=== PATIENT | male | born 1965 | race African-American/Black ===

== ENCOUNTER 2016-11-10 10:34 | Inpatient (IN) | payer OTHER ==
[2016-11-10 10:59] VITALS: BMI 22.1
--- NOTE | 2016-11-10 12:04 | HP ---
CIWA Score - CIWA Score Nausea/Vomitin (N/V/D) Muscle Tremors: 4-Moderate,w/Arms Extend Anxiety: 4-Mod. Anxious/Guarded Agitation: 3 Paroxysmal Sweats: 1-Minimal Palms Moist Orientation: 0-Oriented Tacttile Disturbances: 3-Moderate Itch/Numb/Burn Auditory Disturbances: 0-None Visual Disturbances: 0-None Headache: 1-Very Mild CIWA-Ar Total Score: 21 Admission ROS BHS - HPI Chief Complaint: DETOX TX FOR ALCOHOL,XANAX AND COCAINE DEPENDENCE Allergies/Adverse Reactions: Allergies Allergy/AdvReac Type Severity Reaction Status Date / Time No Known Allergies Allergy Verified 11/14/16 12:09 History of Present Illness: 51 Y/O AA/MALE WITH A HX OF ALCOHOL,COCAINE AND XANAX DEPENDENCE SEEKING DETOX TX. PT ALSO STATES BUYS PAIN PILLS ON THE STREET TO "COME DOWN OF COCAINE HIGH" . PT HAS MULTIPLE EPISODES OF TX VISITS. Exam Limitations: No Limitations - Ebola screening Have you traveled outside of the country in the last 21 days: No Have you had contact with anyone from an Ebola affected area: No Have you been sick,other than usual withdrawal symptoms: No Do you have a fever: No - Review of Systems Constitutional: Chills, Loss of Appetite, Night Sweats, Changes in sleep, Unintentional Wgt. Loss EENT: reports: Blurred Vision, Nose Congestion Respiratory: reports: No Symptoms reported Cardiac: reports: Lightheadedness GI: reports: Diarrhea, Nausea, Poor Appetite, Poor Fluid Intake, Vomiting : reports: No Symptoms Reported Musculoskeletal: reports: Muscle Pain Integumentary: reports: No Symptoms Reported Neuro: reports: Headache, Tremors, Unsteady Gait, Dizziness Endocrine: reports: No Symptoms Reported Hematology: reports: No Symptoms Reported Psychiatric: reports: Orientated x3, Agitated, Anxious, Depressed Other Systems: Reviewed and Negative Patient History - Patient Medical History Hx Anemia: No Hx Asthma: No Hx Chronic Obstructive Pulmonary Disease (COPD): No Hx Cancer: No Hx Cardiac Disorders: No Hx Congestive Heart Failure: No Hx Hypertension: No Hx Hypercholesterolemia: No Hx Pacemaker: No HX Cerebrovascular Accident: No Hx Seizures: No Hx Dementia: No Hx Diabetes: No Hx Gastrointestinal Disorders: No Hx Liver Disease: No Hx Genitourinary Disorders: No Hx Sexually Transmitted Disorders: No Hx Renal Disease (ESRD): No Hx Thyroid Disease: No Hx Human Immunodeficiency Virus (HIV): Yes (SINCE 1998;ON MED) Hx Hepatitis C: No Hx Depression: Yes (WAS ON REMERON) Hx Suicide Attempt: No (DENIES) Hx Bipolar Disorder: Yes Hx Schizophrenia: No - Patient Surgical History Past Surgical History: Yes Hx Neurologic Surgery: No Hx Cataract Extraction: No Hx Cardiac Surgery: No Hx Lung Surgery: No Hx Breast Surgery: No Hx Breast Biopsy: No Hx Abdominal Surgery: No Hx Appendectomy: No Hx Cholecystectomy: No Hx Genitourinary Surgery: No Hx Section: No Hx Orthopedic Surgery: No Other Surgical History: REPAIR OF LACERATION RFA Anesthesia Reaction: No - PPD History Previous Implant?: Yes Documented Results: Negative w/proof Implanted [facility] Admission?: Yes Date: 05/07/16 Results: 0 MM PPD to be Administered?: No - Reproductive History Patient is a Female of Child Bearing Age (11 -55 yrs old): No (MALE) - Smoking Cessation Smoking history: Never smoked Have you smoked in the past 12 months: No Hx Chewing Tobacco Use: No - Substance & Tx. History Hx Alcohol Use: Yes (LISBETH/COGNAC) Hx Substance Use: Yes (COCAINE/XANAX/(PAIN PILLS SOMETIMES)) Substance Use Type: Alcohol, Cocaine, Opiates, Tranquilizers Hx Substance Use Treatment: Yes ([facility]-DETOX) - Substances Abused Alcohol Route: Oral Frequency: Daily Amount used: 2 PINTS COGNAC Age of first use: 17 Date of Last Use: 11/09/16 Alprazolam (Xanax) Route: Oral Frequency: Daily Amount used: 4-6MG Age of first use: 50 Date of Last Use: 11/09/16 Cocaine Route: Injection Frequency: Daily Amount used: $150 Age of first use: 41 Date of Last Use: 11/09/16 Family Disease History - Family Disease History Family Disease History: Diabetes: Mother, Heart Disease: Mother, CA: Brother ( lung,) Admission Physical Exam BHS - Vital Signs Vital Signs: Vital Signs - 24 hr 11/10/16 10:54 Temperature 97.2 F L Pulse Rate 89 Respiratory 18 Rate Blood Pressure 105/74 - Physical General Appearance: Yes: Moderate Distress, Irritable, Anxious HEENTM: Yes: EOMI, Normocephalic, REVA, Pharynx Normal Respiratory: Yes: Chest Non-Tender, Lungs Clear, Normal Breath Sounds, No Respiratory Distress Neck: Yes: Supple, Trachea in good position Breast: Yes: Breast Exam Deferred Cardiology: Yes: Regular Rhythm, Regular Rate, S1, S2 Abdominal: Yes: Normal Bowel Sounds, Non Tender, Soft Genitourinary: Yes: Other (N/C) Back: Yes: Within Normal Limits Musculoskeletal: Yes: full range of Motion, Gait Steady Extremities: Yes: Normal Range of Motion, Non-Tender, Tremors Neurological: Yes: winder hand II-XII NML intact, Fully Oriented, Alert Integumentary: Yes: Dry, Warm Lymphatic: Yes: Within Normal Limits - Diagnostic (1) Alcohol dependence with uncomplicated withdrawal Status: Chronic (2) Sedative, hypnotic or anxiolytic dependence with withdrawal, uncomplicated Status: Acute (3) Cocaine dependence, uncomplicated Status: Acute (4) Human immunodeficiency virus infection Status: Chronic Comment: on stribild Cleared for Admission [facility] - Detox or Rehab [facility] Level of Care: Medically Managed Detox Regimen/Protocol: Valium (PT REQUESTED VALIUM INSTEAD OF LIBRIUM.) [facility] Breath Alcohol Content Breath Alcohol Content: 0 Urine Drug Screen - Results Drug Screen Negative: No Urine Drug Screen Results: BRITTANIE-Cocaine, BZO-Benzodiazepines, TCA-Tricyclic Antidepress, OXY-Oxycodone
[2016-11-10] MEDS ORDERED: P-EPHED 60MG/TRIPROLIDI 2.5MG TABLET PO PRN (12:26)
[2016-11-10] MEDS ORDERED: MAG HYDROX/AL HYDROX/SIMETH 30 ML UNIT-DOSE CUP PO PRN (12:26)
[2016-11-10] MEDS ORDERED: ACETAMINOPHEN 325 MG TABLET (FP) PO PRN (12:26)
[2016-11-10] MEDS ORDERED: MAGNESIUM CITRATE 300 ML BOTTLE PO PRN (12:26)
[2016-11-10] MEDS ORDERED: hydrOXYzine PAMOATE 25 MG CAPSULE (FP) PO PRN (12:26)
[2016-11-10] MEDS ORDERED: MAGNESIUM HYDROX 2400MG/30ML ORAL SUSPENSION 30 ML CUP PO PRN (12:26)
[2016-11-10] MEDS ORDERED: MENTHOL/PHENOL 1 EACH UD MM PRN (12:26)
[2016-11-10] MEDS ORDERED: IBUPROFEN 400 MG TABLET (FP) PO PRN (12:26)
[2016-11-10] MEDS ORDERED: diphenhydrAMINE HCL 50 MG CAPSULE PO PRN (12:26)
[2016-11-10] MEDS ORDERED: guaiFENesin/D-METHORPHAN HB 10 ML UNIT-DOSE CUPS PO PRN (12:26)
[2016-11-10] MEDS ORDERED: diazePAM 5 MG TABLET PO ONE (12:37)
--- NOTE | 2016-11-10 13:39 | CONSULT ---
[facility] Psychiatric Consult - Data Date of interview: 11/10/16 Admission source: [facility] Identifying data: This is 51 years old male with history of Schizoaffective disorder intoxicated with Opioids, Benzodisazepins and Cocaine, history of PCP abuse as well Substance Abuse History: Urine Drug Screen Results: BRITTANIE-Cocaine, BZO- Benzodiazepines, TCA-Tricyclic Antidepress, OXY-Oxycodone. - Smoking Cessation. Smoking history: Never smoked. Have you smoked in the past 12 months: No. Hx Chewing Tobacco Use: No. - Substance & Tx. History. Hx Alcohol Use: Yes (LISBETH/COGNAC). Hx Substance Use: Yes (COCAINE/XANAX(PAIN PILLS SOMETIMES0). Substance Use Type: Alcohol, Cocaine, Tranquilizers. Hx Substance Use Treatment: Yes ([facility]-DETOX). - Substances Abused. Alcohol. Route: Oral. Frequency: Daily. Amount used: 2 PINTS COGNAC. Age of first use : 17. Date of Last Use: 11/09/16. Alprazolam (Xanax). Route: Oral. Frequency: Daily. Amount used: 4-6MG. Age of first use: 50. Date of Last Use : 11/09/16. Cocaine. Route: Injection. Frequency: Daily. Amount used: $ 150. Age of first use: 41. Date of Last Use: 11/09/16 Medical History: Syncope history, Seizure history, Weight loss history, HIV history, Psychiatric History: Patient reports to carry Schizoaffective disorder with most recent psychiatric hospitalization on above 10 years ago, reports taking prior to admission. Seroquel 200mg po qhs Physical/Sexual Abuse/Trauma History: Denies Additional Comment: Urine Drug Screen Results: BRITTANIE-Cocaine, BZO-Benzodiazepines , TCA-Tricyclic Antidepress, OXY-Oxycodone Mental Status Exam - Mental Status Exam Alert and Oriented to: Person Cognitive Function: Fair Patient Appearance: Unkempt Mood: Suspicious, Anxious Affect: Labile Patient Behavior: Cooperative Speech Pattern: Appropriate Voice Loudness: Normal Thought Process: Circumstantial Thought Disorder: Being Controlled Hallucinations: Denies Suicidal Ideation: Denies Homicidal Ideation: Denies Insight/Judgement: Fair Sleep: Difficulty falling asleep Appetite: Weight loss Muscle strength/Tone: Normal Gait/Station: Normal Additional Comments: Seroquel 200mg po qhs Psychiatric Findings - Problem List ([place] 1, 2,3) (1) Weight decreased Current Visit: No Status: Active (2) Alcohol dependence with uncomplicated withdrawal Current Visit: No Status: Acute (3) Cocaine dependence Current Visit: No Status: Acute (4) Opiate dependence Current Visit: No Status: Acute (5) PCP (phencyclidine) abuse Current Visit: No Status: Acute (6) Schizoaffective Disorder Current Visit: No Status: Acute - Initial Treatment Plan Initial Treatment Plan: Seroquel 200mg po qhs
[2016-11-10] MEDS: diazePAM 5 MG TABLET PO SCH ×2 (13:41→22:16)
[2016-11-10] MEDS ORDERED: LIDOCAINE VISCOUS 2% ORAL/TOP 20 ML UNIT-DOSE CUP MM PRN (15:26)
[2016-11-10 16:31] LABS: URINE APPEARANCE CLEAR; URINE BILIRUBIN NEGATIVE (NEGATIVE); URINE BLOOD NEGATIVE (NEGATIVE); URINE COLOR YELLOW; URINE GLUCOSE (UA) NEGATIVE (NEGATIVE); URINE KETONE TRACE (NEGATIVE); URINE LEUK ESTERASE NEGATIVE (NEGATIVE); URINE NITRITE NEGATIVE (NEGATIVE); URINE PROTEIN NEGATIVE (NEGATIVE); URINE UROBILINOGEN 4.0 E.U/dl E.U./dl (0.2-1.0)
--- NOTE | 2016-11-10 17:36 | EKG ---
Test Reason : Blood Pressure : / mmHG Vent. Rate : 084 BPM Atrial Rate : 084 BPM P-R Int : 112 ms QRS Dur : 086 ms QT Int : 358 ms P-R-T Axes : 071 056 049 degrees QTc Int : 423 ms NORMAL SINUS RHYTHM NORMAL ECG NO PREVIOUS ECGS AVAILABLE Confirmed by OTILIO BAPTISTE MD ([id number]) on 11/10/2016 5:36:13 PM Referred By: Ezio Stone Confirmed By:OTILIO BAPTISTE MD
[2016-11-10] MEDS: diazePAM 5 MG TABLET PO PRN (18:03)
[2016-11-10] MEDS: PATIENT'S OWN MEDICATION (NON-FORMULARY) (Elviteg/Cobi/Emtric/Tenofo Dis [Stribild Tablet] PO SCH (19:49)
[2016-11-10] MEDS: QUEtiapine FUMARATE 200 MG TABLET PO SCH (22:16)
[2016-11-10] MEDS: cloNIDine HCL 0.1 MG TABLET PO SCH (22:16)
[2016-11-10] MEDS: THIAMINE HCL 100 MG TABLET (FP) PO SCH (22:16)
[2016-11-11] MEDS: diazePAM 5 MG TABLET PO SCH ×3 (05:40→22:09)
[2016-11-11 09:18] LABS: MCH 24.3 pg (25.7-33.7); MCHC 31.8 g/dl (32.0-35.9); MEAN CELL VOLUME 76.4 fl (80-96); MEAN PLT VOLUME 7.7 fl (7.5-11.1); PLATELET COUNT 293 K/MM3 (134-434); RDW 15.2 % (11.9-15.9); WHITE BLOOD COUNT 6.1 K/mm3 (4.0-10.0)
[2016-11-11 09:20] LABS: CALCIUM 9.2 mg/dL (8.5-10.1)
[2016-11-11 09:27] LABS: ALBUMIN 3.8 g/dl (3.4-5.0); BILIRUBIN,TOTAL 0.6 mg/dL (0.2-1.0); CREATININE 1.3 mg/dL (0.7-1.3); TOT PROT 7.6 g/dl (6.4-8.2)
--- NOTE | 2016-11-11 09:46 | PN ---
S CIWA - CIWA Score Nausea/Vomitin Muscle Tremors: 3 Anxiety: 3 Agitation: 2 Paroxysmal Sweats: No Perspiration Orientation: 0-Oriented Tacttile Disturbances: 0-None Auditory Disturbances: 2-Mild Harshness/Frighten Visual Disturbances: 1-Very Mild Sensitivity Headache: 2-Mild CIWA-Ar Total Score: 15 BHS Progress Note (SOAP) Objective: 11/11/16 09:45 Laboratory Tests 11/10/16 11/11/16 11/11/16 13:00 06:05 06:05 WBC 6.1 RBC 5.45 Hgb 13.3 Hct 41.6 MCV 76.4 L MCHC 31.8 L RDW 15.2 Plt Count 293 MPV 7.7 Sodium 141 Potassium 4.5 Chloride 104 Carbon Dioxide 30 Anion Gap 7 L BUN 18 D Creatinine 1.3 Creat Clearance w eGFR 58.43 Random Glucose 144 H D Calcium 9.2 Total Bilirubin 0.6 AST 25 D ALT 18 Alkaline Phosphatase 94 D Total Protein 7.6 Albumin 3.8 Urine Color Yellow Urine Appearance Clear Urine pH 6.0 Ur Specific Hydro 1.026 Urine Protein Negative Urine Glucose (UA) Negative Urine Ketones Trace H Urine Blood Negative Urine Nitrite Negative Urine Bilirubin Negative Urine Urobilinogen 4.0 e.u/dl Ur Leukocyte Esterase Negative Vital Signs - 24 hr 11/10/16 11/10/16 11/10/16 10:54 15:00 20:23 Temperature 97.2 F L 97.5 F L 97.7 F Pulse Rate 89 97 H 95 H Respiratory 18 20 20 Rate Blood Pressure 105/74 99/68 104/68 11/10/16 11/11/16 11/11/16 22:00 00:30 03:30 Temperature 97.9 F Pulse Rate 94 H Respiratory 20 16 18 Rate Blood Pressure 123/68 11/11/16 06:00 Temperature 96.4 F L Pulse Rate 75 Respiratory 18 Rate Blood Pressure 111/57 Assessment: 11/11/16 09:46 ongoing withdrawal Plan: continue detox protocol
[2016-11-11] MEDS: cloNIDine HCL 0.1 MG TABLET PO SCH ×2 (10:37→22:10)
[2016-11-11] MEDS: PRENATAL VITAMINS W/ FOLIC ACID TABLET (FP) PO SCH (10:37)
[2016-11-11] MEDS: PATIENT'S OWN MEDICATION (NON-FORMULARY) (Elviteg/Cobi/Emtric/Tenofo Dis [Stribild Tablet] PO SCH (10:37)
[2016-11-11] MEDS: diazePAM 5 MG TABLET PO PRN ×2 (10:40→17:10)
[2016-11-11] MEDS: LOPERAMIDE HCL 2 MG CAPSULE PO PRN (20:44)
[2016-11-11] MEDS: THIAMINE HCL 100 MG TABLET (FP) PO SCH (22:09)
[2016-11-11] MEDS: QUEtiapine FUMARATE 200 MG TABLET PO SCH (22:10)
[2016-11-12] MEDS: diazePAM 5 MG TABLET PO PRN ×2 (05:56→19:25)
[2016-11-12] MEDS: LOPERAMIDE HCL 2 MG CAPSULE PO PRN (09:03)
[2016-11-12] MEDS: cloNIDine HCL 0.1 MG TABLET PO SCH ×2 (10:24→22:13)
[2016-11-12] MEDS: PRENATAL VITAMINS W/ FOLIC ACID TABLET (FP) PO SCH (10:24)
[2016-11-12] MEDS: diazePAM 5 MG TABLET PO SCH ×2 (10:24→22:13)
[2016-11-12] MEDS: PATIENT'S OWN MEDICATION (NON-FORMULARY) (Elviteg/Cobi/Emtric/Tenofo Dis [Stribild Tablet] PO SCH (10:24)
--- NOTE | 2016-11-12 13:12 | PN ---
S CIWA - CIWA Score Nausea/Vomitin Muscle Tremors: 3 Anxiety: 2 Agitation: 2 Paroxysmal Sweats: 1-Minimal Palms Moist Orientation: 0-Oriented Tacttile Disturbances: 1-Very Mild Itch/Numbness Auditory Disturbances: 1-Very Mild Visual Disturbances: 1-Very Mild Sensitivity Headache: 2-Mild CIWA-Ar Total Score: 16 S Progress Note (SOAP) Subjective: ALERT,IRRITABLE,ANXIOUS,INTERRUPTED SLEEP,TREMOR Objective: 11/12/16 13:10 Vital Signs Temperature 97.7 F 11/12/16 10:05 Pulse Rate 79 11/12/16 10:05 Respiratory Rate 16 11/12/16 10:05 Blood Pressure 103/68 11/12/16 10:05 O2 Sat by Pulse Oximetry (%) EKG SNR,NORMAL ECG Laboratory Last Values WBC 6.1 K/mm3 (4.0-10.0) 11/11/16 06:05 RBC 5.45 M/mm3 (4.00-5.60) 11/11/16 06:05 Hgb 13.3 GM/dL (11.7-16.9) 11/11/16 06:05 Hct 41.6 % (35.4-49) 11/11/16 06:05 MCV 76.4 fl (80-96) L 11/11/16 06:05 MCHC 31.8 g/dl (32.0-35.9) L 11/11/16 06:05 RDW 15.2 % (11.9-15.9) 11/11/16 06:05 Plt Count 293 K/MM3 (134-434) 11/11/16 06:05 MPV 7.7 fl (7.5-11.1) 11/11/16 06:05 Sodium 141 mmol/L (136-145) 11/11/16 06:05 Potassium 4.5 mmol/L (3.5-5.1) 11/11/16 06:05 Chloride 104 mmol/L (98-107) 11/11/16 06:05 Carbon Dioxide 30 mmol/L (21-32) 11/11/16 06:05 Anion Gap 7 (8-16) L 11/11/16 06:05 BUN 18 mg/dL (7-18) D 11/11/16 06:05 Creatinine 1.3 mg/dL (0.7-1.3) 11/11/16 06:05 Creat Clearance w eGFR 58.43 (>60) 11/11/16 06:05 Random Glucose 144 mg/dL (74-106) H D 11/11/16 06:05 Calcium 9.2 mg/dL (8.5-10.1) 11/11/16 06:05 Total Bilirubin 0.6 mg/dL (0.2-1.0) 11/11/16 06:05 AST 25 U/L (15-37) D 11/11/16 06:05 ALT 18 U/L (12-78) 11/11/16 06:05 Alkaline Phosphatase 94 U/L (45-117) D 11/11/16 06:05 Total Protein 7.6 g/dl (6.4-8.2) 11/11/16 06:05 Albumin 3.8 g/dl (3.4-5.0) 11/11/16 06:05 Urine Color Yellow 11/10/16 13:00 Urine Appearance Clear 11/10/16 13:00 Urine pH 6.0 (5.0-8.0) 11/10/16 13:00 Ur Specific [place] 1.026 (1.001-1.035) 11/10/16 13:00 Urine Protein Negative (NEGATIVE) 11/10/16 13:00 Urine Glucose (UA) Negative (NEGATIVE) 11/10/16 13:00 Urine Ketones Trace (NEGATIVE) H 11/10/16 13:00 Urine Blood Negative (NEGATIVE) 11/10/16 13:00 Urine Nitrite Negative (NEGATIVE) 11/10/16 13:00 Urine Bilirubin Negative (NEGATIVE) 11/10/16 13:00 Urine Urobilinogen 4.0 e.u/dl E.U./dl (0.2-1.0) 11/10/16 13:00 Ur Leukocyte Esterase Negative (NEGATIVE) 11/10/16 13:00 RPR Titer Nonreactive (NONREACTIVE) 11/11/16 06:05 Assessment: 11/12/16 13:11 WITHDRAWAL SYMPTOM Plan: CONTINUE DETOX,INITIAL GLUCOSE 144,BGM MONITORING
[2016-11-12] MEDS: QUEtiapine FUMARATE 200 MG TABLET PO SCH (22:13)
[2016-11-12] MEDS: THIAMINE HCL 100 MG TABLET (FP) PO SCH (22:13)
[2016-11-13] MEDS: diazePAM 5 MG TABLET PO PRN (06:01)
[2016-11-13 09:59] LABS: URINE APPEARANCE CLEAR; URINE BILIRUBIN NEGATIVE (NEGATIVE); URINE BLOOD NEGATIVE (NEGATIVE); URINE COLOR LTYELLOW; URINE GLUCOSE (UA) NEGATIVE (NEGATIVE); URINE KETONE NEGATIVE (NEGATIVE); URINE LEUK ESTERASE NEGATIVE (NEGATIVE); URINE NITRITE NEGATIVE (NEGATIVE); URINE PROTEIN NEGATIVE (NEGATIVE); URINE UROBILINOGEN NEGATIVE E.U./dl (0.2-1.0)
[2016-11-13] MEDS: cloNIDine HCL 0.1 MG TABLET PO SCH ×2 (10:31→22:32)
[2016-11-13] MEDS: PATIENT'S OWN MEDICATION (NON-FORMULARY) (Elviteg/Cobi/Emtric/Tenofo Dis [Stribild Tablet] PO SCH (10:31)
[2016-11-13] MEDS: diazePAM 5 MG TABLET PO SCH ×2 (10:31→22:32)
[2016-11-13] MEDS: PRENATAL VITAMINS W/ FOLIC ACID TABLET (FP) PO SCH (10:31)
--- NOTE | 2016-11-13 12:02 | PN ---
S Progress Note (SOAP) Subjective: ALERT,IRRITABLE,ANXIOUS,INTERRUPTED SLEEP Objective: 11/13/16 12:02 Vital Signs Temperature 97.9 F 11/13/16 11:02 Pulse Rate 80 11/13/16 11:02 Respiratory Rate 18 11/13/16 11:02 Blood Pressure 132/79 11/13/16 11:02 O2 Sat by Pulse Oximetry (%) Assessment: 11/13/16 12:02 WITHDRAWAL SYMPTOM Plan: CONTINUE DETOX,DISCHARGE IN AM
[2016-11-13] MEDS: THIAMINE HCL 100 MG TABLET (FP) PO SCH (22:31)
[2016-11-13] MEDS: QUEtiapine FUMARATE 200 MG TABLET PO SCH (22:32)
--- NOTE | 2016-11-14 08:57 | DS ---
[facility] Detox Discharge Summary Admission Date: 11/10/16 Discharge Date: 11/14/16 - History Present History: Alcohol Dependence, Cocaine Dependence, Opioid Dependence, Pcp Dependence - Physical Exam Results Vital Signs: Vital Signs Temperature 97.3 F L 11/14/16 06:00 Pulse Rate 77 11/14/16 06:00 Respiratory Rate 18 11/14/16 06:00 Blood Pressure 118/72 11/14/16 06:00 O2 Sat by Pulse Oximetry (%) - Treatment Hospital Course: Detox Protocol Followed, Detoxed Safely, Responded well, Discharged Condition Good, Rehab Referral Accepted - Medication Discharge Medications: Ambulatory Orders Elviteg/Khadra/Emtric/Tenofo Dis [Stribild Tablet] 1 tab PO DAILY #30 tablet 03/14 Mirtazapine [Remeron -] 30 mg PO HS #30 tablet 05/16/16 Quetiapine Fumarate [Seroquel -] 200 mg PO HS #30 tab 11/10/16 - Diagnosis (1) Syncope Current Visit: No Status: Active (2) Weight decreased Current Visit: No Status: Active (3) Alcohol dependence with uncomplicated withdrawal Current Visit: Yes Status: Chronic (4) Cocaine dependence Current Visit: Yes Status: Chronic (5) Opiate dependence Current Visit: Yes Status: Chronic Qualifiers: Substance use status: uncomplicated Qualified Code(s): F11.20 - Opioid dependence, uncomplicated (6) PCP (phencyclidine) abuse Current Visit: Yes Status: Chronic (7) Schizoaffective Disorder Current Visit: No Status: Acute (8) Seizure Current Visit: No Status: Acute (9) Alcohol dependence Current Visit: No Status: Chronic (10) Human immunodeficiency virus infection Current Visit: Yes Status: Chronic (11) Bipolar disorder Current Visit: No Status: Suspected - AMA Did Patient Leave Against Medical Advice: No
[2016-11-14] MEDS ORDERED: diazePAM 5 MG TABLET PO SCH (10:00)
[2016-11-14 10:18] VITALS: BP 131/90; PULSE 92; TEMP 98.2
[2016-11-14] MEDS: PATIENT'S OWN MEDICATION (NON-FORMULARY) (Elviteg/Cobi/Emtric/Tenofo Dis [Stribild Tablet] PO SCH (10:29)
[2016-11-14] MEDS: PRENATAL VITAMINS W/ FOLIC ACID TABLET (FP) PO SCH (10:29)
[2016-11-14] MEDS: cloNIDine HCL 0.1 MG TABLET PO SCH (10:29)
== END 2016-11-14 11:47 | disposition other institution (70) | DRG 773 ==
LOC: YASAS 10:34 → Y6N 11:57
PROVIDERS: ADMIT Internal Medicine Addiction Medicine; ATTEND Internal Medicine Addiction Medicine
PROC: HZ2ZZZZ Detoxification Services for Substance Abuse Treatment (ICD-10-PCS; principal; 2016-11-14)
DX: F11.20 Opioid dependence, uncomplicated (principal); F10.230 Alcohol dependence with withdrawal, uncomplicated; F14.20 Cocaine dependence, uncomplicated; F16.10 Hallucinogen abuse, uncomplicated; F31.9 Bipolar disorder, unspecified; Z21 Asymptomatic human immunodeficiency virus [HIV] infection status; Z86.69 Personal history of other diseases of the nervous system and sense organs; R63.4 Abnormal weight loss; Z68.22 Body mass index [BMI] 22.0-22.9, adult
CPT/HCPCS: 36415; 80053; 81003; 85027; 86593; 93005; 93010

== ENCOUNTER 2016-11-14 12:03 | Inpatient (IN) | payer OTHER ==
[2016-11-14] MEDS ORDERED: diphenhydrAMINE HCL 50 MG CAPSULE PO PRN (12:57)
[2016-11-14] MEDS ORDERED: MAGNESIUM HYDROX 2400MG/30ML ORAL SUSPENSION 30 ML CUP PO PRN (12:57)
[2016-11-14] MEDS ORDERED: MAGNESIUM CITRATE 300 ML BOTTLE PO PRN (12:57)
[2016-11-14] MEDS ORDERED: P-EPHED 60MG/TRIPROLIDI 2.5MG TABLET PO PRN (12:57)
[2016-11-14] MEDS ORDERED: guaiFENesin/D-METHORPHAN HB 10 ML UNIT-DOSE CUPS PO PRN (12:57)
[2016-11-14] MEDS ORDERED: MENTHOL/PHENOL 1 EACH UD MM PRN (12:57)
[2016-11-14] MEDS ORDERED: LOPERAMIDE HCL 2 MG CAPSULE PO PRN (12:57)
[2016-11-14] MEDS ORDERED: IBUPROFEN 400 MG TABLET (FP) PO PRN (12:57)
[2016-11-14] MEDS ORDERED: hydrOXYzine PAMOATE 50 MG CAPSULE (FP) PO PRN (12:57)
[2016-11-14] MEDS ORDERED: ACETAMINOPHEN 325 MG TABLET (FP) PO PRN (12:57)
[2016-11-14] MEDS ORDERED: MAG HYDROX/AL HYDROX/SIMETH 30 ML UNIT-DOSE CUP PO PRN (12:57)
--- NOTE | 2016-11-14 13:01 | HP ---
[facility] Assess/Revision - Admission History Admitted to Rehab from: [facility] [address] [place] Date of Admission to Rehab: 11/14/16 - Vital signs Vital Signs: Vital Signs Period Temp Pulse Resp BP Sys/Singer Pulse Ox Last 24 Hr 98 F 79 18 113/57 - Findings Detox History & Physical reviewed: Yes Concur with findings: Yes Comments/Additional Findings: FOR REHAB PROTOCOL
--- NOTE | 2016-11-14 13:57 | HP ---
Psychiatrist Admission - Data Date of interview: 11/14/16 Admission source: 3N Identifying data: This is the third 5N inpatient rehabilitation admission for this 51 year old black male residing with his ex in [facility]. He is a father of two, unemployed and supported on welfare. Medical History: Significant for HIV infection in 1998 Psychiatric History: Patient reports was diagnosed as Bipolar and Schizophrenia , he was admitted twice for racing thoughts, mood instability, reports one suicidal attempt as cutting wrist in 2005, currently on Seroquel 200 mg po hs, was seen by and continued medication reports he is sedated and on his previous 5N treatment was on Seroquel 50 mg po hs and Remeron 15 mg po hs, and reports this comination of meds more effective. Patient states he stopped seing his psychiatrist and will planning to f/u with his previous psychiatrist at [facility] . Physical/Sexual Abuse/Trauma History: Denies history of sexual, physical and verbal abuse. Vital Signs: Vital Signs - 24 hr 11/14/16 12:08 Temperature 98 F Pulse Rate 79 Respiratory 18 Rate Blood Pressure 113/57 Allergies/Adverse Reactions: Allergies Allergy/AdvReac Type Severity Reaction Status Date / Time No Known Allergies Allergy Verified 11/14/16 12:09 Date of last physical exam: 11/10/16 Concur with the findings of this exam: Yes - Substance Abuse/Tx History Hx Alcohol Use: Yes Hx Substance Use: Yes Substance Use Type: Alcohol, Cocaine, Tranquilizers (xanax) Hx Substance Use Treatment: Yes - Admission Criteria Previous failed treatment: Yes Poor recovery environment: Yes Comorbidities: Yes Lacks judgement: Yes Mental Status Exam - Mental Status Exam Alert and Oriented to: Time, Place, Person Cognitive Function: Grossly Intact Patient Appearance: Well Groomed Mood: Anxious, Irritable Affect: Mood Congruent Patient Behavior: Restless, Cooperative Speech Pattern: Appropriate Voice Loudness: Normal Thought Process: Goal Oriented Thought Disorder: Not Present Hallucinations: Denies Suicidal Ideation: Denies Homicidal Ideation: Denies Insight/Judgement: Fair Sleep: Poorly Appetite: Fair Muscle strength/Tone: Normal Gait/Station: Normal Psychiatric Findings - Problem List ([place] 1, 2,3) (1) Schizoaffective Disorder Current Visit: No Status: Acute (2) Alcohol dependence Current Visit: No Status: Chronic (3) Cocaine dependence Current Visit: No Status: Chronic (4) Human immunodeficiency virus infection Current Visit: No Status: Chronic Comment: on stribild (5) Benzodiazepine dependence Current Visit: Yes Status: Acute - Initial Treatment Plan Initial Treatment Plan: will restart Remeron 15 mg po hs and Seroquel 50 mg po hs, continue to monitor progress.
[2016-11-14] MEDS ORDERED: LIDOCAINE VISCOUS 2% ORAL/TOP 20 ML UNIT-DOSE CUP MM PRN (18:56)
--- NOTE | 2016-11-14 18:58 | PN ---
[facility] Progress Note Note: RECEIVED NURSE CALL PATIENT HAS TOOTH ACHE, NO SWELLING NO BLEEDING ABLE TO CHEW REGULAR FOOD LIDOCAINE PRN
[2016-11-14] MEDS ORDERED: THIAMINE HCL 100 MG TABLET (FP) PO SCH (22:00)
[2016-11-14] MEDS ORDERED: MIRTAZAPINE 15 MG TABLET (FP) PO SCH (22:00)
[2016-11-14] MEDS ORDERED: QUEtiapine FUMARATE 50 MG TABLET PO SCH (22:00)
[2016-11-15 07:03] VITALS: BP 125/76; PULSE 78; TEMP 97.4
[2016-11-15] MEDS ORDERED: PATIENT'S OWN MEDICATION (NON-FORMULARY) (Elviteg/Cobi/Emtric/Tenofo Dis [Stribild Tablet] PO SCH (10:00)
[2016-11-15] MEDS ORDERED: PRENATAL VITAMINS W/ FOLIC ACID TABLET (FP) PO SCH (10:00)
--- NOTE | 2016-11-15 10:32 | PN ---
[facility] Progress Note Note: patient signed out ama prior to be seen by a psychiatrist.
== END 2016-11-15 08:35 | disposition left against medical advice (07) | DRG 770 ==
LOC: YASAS 12:03 → Y5N 12:04
PROVIDERS: ADMIT Psychiatry & Neurology Psychiatry; ATTEND Psychiatry & Neurology Psychiatry
PROC: HZ42ZZZ Group Counseling for Substance Abuse Treatment, Cognitive-Behavioral (ICD-10-PCS; principal; 2016-11-15)
DX: F13.20 Sedative, hypnotic or anxiolytic dependence, uncomplicated (principal); F10.20 Alcohol dependence, uncomplicated; F14.20 Cocaine dependence, uncomplicated; F25.9 Schizoaffective disorder, unspecified; Z21 Asymptomatic human immunodeficiency virus [HIV] infection status

== ENCOUNTER 2017-02-04 10:27 | Inpatient (IN) | payer OTHER ==
[2017-02-04 11:15] VITALS: BMI 24.2
--- NOTE | 2017-02-04 11:53 | HP ---
CIWA Score - CIWA Score Nausea/Vomitin-Mild Nausea/No Vomiting Muscle Tremors: 4-Moderate,w/Arms Extend Anxiety: 4-Mod. Anxious/Guarded Agitation: 1-Slight > Activity Paroxysmal Sweats: 1-Minimal Palms Moist Orientation: 1-Uncertain about Date Tacttile Disturbances: 1-Very Mild Itch/Numbness Auditory Disturbances: 1-Very Mild Visual Disturbances: 1-Very Mild Sensitivity Headache: 1-Very Mild CIWA-Ar Total Score: 16 Admission ROS BHS - HPI Chief Complaint: My program says I have to get clean, my brother doesn't like it when I do drugs Allergies/Adverse Reactions: Allergies Allergy/AdvReac Type Severity Reaction Status Date / Time No Known Allergies Allergy Verified 02/04/17 13:40 History of Present Illness: 51 yo gentleman here for detox from alcohol - no seizures but did have black outs, this is one of multiple admissions for detox and also has been in rehab. Patient in [facility] health program. Noted [place] STAGING TECHNICIAN shows patient gets percocet 180 tabs monthly - he states his brother took it away when he saw he was drinking. When asked why he has been presribed percocet for many months, he states 'they say I have neuropathy but I'm fine, I don't need it". Exam Limitations: Clinical Condition - Ebola screening Have you traveled outside of the country in the last 21 days: No Have you had contact with anyone from an Ebola affected area: No Have you been sick,other than usual withdrawal symptoms: No Do you have a fever: No - Review of Systems Constitutional: Loss of Appetite, Night Sweats EENT: reports: Blurred Vision Respiratory: reports: No Symptoms reported Cardiac: reports: No Symptoms Reported GI: reports: No Symptoms Reported : reports: No Symptoms Reported Musculoskeletal: reports: Back Pain Integumentary: reports: No Symptoms Reported Neuro: reports: Headache Endocrine: reports: No Symptoms Reported Hematology: reports: No Symptoms Reported Psychiatric: reports: Judgement Intact, Mood/Affect Appropiate, Anxious Other Systems: Reviewed and Negative Patient History - Patient Medical History Hx Anemia: No Hx Asthma: No Hx Chronic Obstructive Pulmonary Disease (COPD): No Hx Cancer: No Hx Cardiac Disorders: No Hx Congestive Heart Failure: No Hx Hypertension: No Hx Hypercholesterolemia: No Hx Pacemaker: No HX Cerebrovascular Accident: No Hx Seizures: No Hx Dementia: No Hx Diabetes: No Hx Gastrointestinal Disorders: No Hx Liver Disease: No Hx Genitourinary Disorders: No Hx Sexually Transmitted Disorders: No Hx Renal Disease (ESRD): No Hx Thyroid Disease: No Hx Human Immunodeficiency Virus (HIV): Yes (SINCE 1998;ON MED, t cells about 500 vl <20) Hx Hepatitis C: No Hx Depression: Yes Hx Suicide Attempt: No Hx Bipolar Disorder: Yes (on meds, go to [facility], hosp 5 yrs ago ) Hx Schizophrenia: No - Patient Surgical History Past Surgical History: Yes Hx Neurologic Surgery: No Hx Cataract Extraction: No Hx Cardiac Surgery: No Hx Lung Surgery: No Hx Breast Surgery: No Hx Breast Biopsy: No Hx Abdominal Surgery: No Hx Appendectomy: No Hx Cholecystectomy: No Hx Genitourinary Surgery: No Hx Section: No Hx Orthopedic Surgery: No Other Surgical History: REPAIR OF LACERATION RIGHT FOREARM (BOXING). Anesthesia Reaction: No - PPD History Previous Implant?: Yes Documented Results: Negative w/proof Date: 05/07/16 Results: 0 mm. PPD to be Administered?: No - Reproductive History Patient is a Female of Child Bearing Age (11 -55 yrs old): No (male) - Smoking Cessation Smoking history: Never smoked Have you smoked in the past 12 months: No Cigars Per Day: 0 Hx Chewing Tobacco Use: No Initiated information on smoking cessation: No - Substance & Tx. History Hx Alcohol Use: Yes Hx Substance Use: Yes Substance Use Type: Alcohol, Cocaine Hx Substance Use Treatment: Yes (detox, rehab) - Substances Abused Alcohol Route: Oral Frequency: Daily Amount used: 2 pints vodka, six pack beer Age of first use: 17 Date of Last Use: 02/03/17 Crack Route: Injection Frequency: 1-2 times per week Amount used: two $20 bags Age of first use: 26 Date of Last Use: 02/02/17 Family Disease History - Family Disease History Family Disease History: Diabetes: Mother, Heart Disease: Mother, CA: Brother ( lung,) Admission Physical Exam BHS - Vital Signs Vital Signs: Vital Signs - 24 hr 02/04/17 11:10 Temperature 96.8 F L Pulse Rate 72 Respiratory 20 Rate Blood Pressure 116/72 - Physical General Appearance: Yes: Nourished, Appropriately Dressed, Mild Distress, Anxious HEENTM: Yes: Hearing grossly Normal, Normal ENT Inspection, Normocephalic, Normal Voice, Pharynx Normal Respiratory: Yes: Lungs Clear, No Respiratory Distress Neck: Yes: No masses,lesions,Nodules, Supple Breast: Yes: Breast Exam Deferred Cardiology: Yes: Regular Rhythm, Regular Rate Abdominal: Yes: Soft Genitourinary: Yes: Frequency Back: Yes: Normal Inspection Musculoskeletal: Yes: full range of Motion, Gait Steady Extremities: Yes: Normal Inspection Neurological: Yes: Alert, Normal Mood/Affect Integumentary: Yes: Normal Color, Warm Lymphatic: Yes: Within Normal Limits - Diagnostic (1) Weight decreased Current Visit: Yes Status: Chronic (2) Alcohol dependence with uncomplicated withdrawal Current Visit: Yes Status: Chronic (3) Cocaine dependence, uncomplicated Current Visit: Yes Status: Chronic (4) Human immunodeficiency virus infection Current Visit: Yes Status: Chronic Comment: on stribild Cleared for Admission [facility] - Detox or Rehab [facility] Level of Care: Medically Managed Detox Regimen/Protocol: Librium [facility] Breath Alcohol Content Breath Alcohol Content: 0.055 Urine Drug Screen - Results Drug Screen Negative: No Urine Drug Screen Results: BRITTANIE-Cocaine
[2017-02-04] MEDS ORDERED: IBUPROFEN 400 MG TABLET (FP) PO PRN (12:17)
[2017-02-04] MEDS ORDERED: MENTHOL/PHENOL 1 EACH UD MM PRN (12:17)
[2017-02-04] MEDS ORDERED: P-EPHED 60MG/TRIPROLIDI 2.5MG TABLET PO PRN (12:17)
[2017-02-04] MEDS ORDERED: MAGNESIUM CITRATE 300 ML BOTTLE PO PRN (12:17)
[2017-02-04] MEDS ORDERED: chlordiazePOXIDE HCL 25 MG CAPSULE PO ONE (12:17)
[2017-02-04] MEDS ORDERED: MAG HYDROX/AL HYDROX/SIMETH 30 ML UNIT-DOSE CUP PO PRN (12:17)
[2017-02-04] MEDS ORDERED: diphenhydrAMINE HCL 50 MG CAPSULE PO PRN (12:17)
[2017-02-04] MEDS ORDERED: ACETAMINOPHEN 325 MG TABLET (FP) PO PRN (12:17)
[2017-02-04] MEDS ORDERED: MAGNESIUM HYDROX 2400MG/30ML ORAL SUSPENSION 30 ML CUP PO PRN (12:17)
[2017-02-04] MEDS ORDERED: guaiFENesin/D-METHORPHAN HB 10 ML UNIT-DOSE CUPS PO PRN (12:32)
[2017-02-04] MEDS ORDERED: hydrOXYzine PAMOATE 50 MG CAPSULE (FP) PO PRN (12:33)
[2017-02-04] MEDS ORDERED: LOPERAMIDE HCL 2 MG CAPSULE PO PRN (12:35)
[2017-02-04] MEDS: chlordiazePOXIDE HCL 25 MG CAPSULE PO PRN (14:43)
--- NOTE | 2017-02-04 17:17 | CONSULT ---
[facility] Psychiatric Consult - Data Date of interview: 02/04/17 Admission source: [facility] Identifying data: Readmission to [facility] for this 51 y/o AA male seeking detox treatment on for alcohol and cocaine dependence.Patient is ,a father of two,domiciled,unemployed and supported on welfare. Substance Abuse History: - Smoking Cessation. Smoking history: Never smoked. Have you smoked in the past 12 months: No. Cigars Per Day: 0. Hx Chewing Tobacco Use: No. Initiated information on smoking cessation: No. - Substance & Tx. History. Hx Alcohol Use: Yes. Hx Substance Use: Yes. Substance Use Type : Alcohol, Cocaine. Hx Substance Use Treatment: Yes (detox, rehab). - Substances Abused. Alcohol. Route: Oral. Frequency: Daily. Amount used: 2 pints vodka, six pack beer. Age of first use: 17. Date of Last Use: . Crack. Route: Injection. Frequency: 1-2 times per week. Amount used: two $20 bags. Age of first use: 26. Date of Last Use: 02/02/17. Confirmed by patient. Medical History: HIV infection since 1998 (on ART drugs). Psychiatric History: Diagnosed with Bipolar Disorder.Patient denies history of psychiatric hospitalizations.Mr Martinez reports that he is currently getting his psychiatric outpatient services at the [facility] program in [facility].Prescribed remeron 30 mg/hs + seroquel 200 mg/hs by Dr Blanco,his current psychiatrist.Patient indicates,however,his intention to take a lower dose of seroquel (100 mg/hs instead of 200 mg) and a reduced dose of mirtazapine (7.5 mg /hs)." These things are strong and they make me feel so drowsy in the morning." Patient denies history of suicide attempts in this interview. Physical/Sexual Abuse/Trauma History: Patient denies. Additional Comment: Urine Drug Screen Results: BRITTANIE-Cocaine.Noted. Mental Status Exam - Mental Status Exam Alert and Oriented to: Time, Place, Person Cognitive Function: Good Patient Appearance: Well Groomed Mood: Hopeful, Euthymic Affect: Appropriate, Normal Range Patient Behavior: Appropriate, Cooperative Speech Pattern: Clear, Appropriate Voice Loudness: Normal Thought Process: Goal Oriented Thought Disorder: Not Present Hallucinations: Denies Suicidal Ideation: Denies Homicidal Ideation: Denies Insight/Judgement: Poor Sleep: Poorly, Difficulty falling asleep Appetite: Good Muscle strength/Tone: Normal Gait/Station: Normal Psychiatric Findings - Problem List ([place] 1, 2,3) (1) Alcohol dependence with uncomplicated withdrawal Current Visit: Yes Status: Acute (2) Cocaine dependence, uncomplicated Current Visit: Yes Status: Acute (3) Schizoaffective Disorder Current Visit: Yes Status: Chronic Comment: History. (4) Substance induced mood disorder Current Visit: Yes Status: Acute (5) Human immunodeficiency virus infection Current Visit: Yes Status: Chronic Comment: on stribild (6) Insomnia Current Visit: Yes Status: Acute - Initial Treatment Plan Initial Treatment Plan: Previous records are reviewed.Psychoeducation.Detoxification.Medications : seroquel 100 mg po hs ( patient's request) + mirtazapine 7.5 mg po hs.Side effects/benefits of both drugs are discussed with patient.He agrees with this careplan.Observation.
[2017-02-04] MEDS: chlordiazePOXIDE HCL 25 MG CAPSULE PO SCH ×2 (17:53→22:45)
[2017-02-04 21:40] LABS: URINE APPEARANCE CLEAR; URINE BILIRUBIN NEGATIVE (NEGATIVE); URINE BLOOD NEGATIVE (NEGATIVE); URINE COLOR YELLOW; URINE GLUCOSE (UA) NEGATIVE (NEGATIVE); URINE KETONE NEGATIVE (NEGATIVE); URINE LEUK ESTERASE NEGATIVE (NEGATIVE); URINE NITRITE NEGATIVE (NEGATIVE); URINE PROTEIN NEGATIVE (NEGATIVE); URINE UROBILINOGEN NEGATIVE E.U./dl (0.2-1.0)
[2017-02-04] MEDS: THIAMINE HCL 100 MG TABLET (FP) PO SCH (22:45)
[2017-02-04] MEDS: QUEtiapine FUMARATE 100 MG TABLET (FP) PO SCH (22:45)
[2017-02-04] MEDS: MIRTAZAPINE 15 MG TABLET (FP) PO SCH (22:53)
[2017-02-04] MEDS: RITONAVIR 100 MG TABLET PO SCH (22:54)
[2017-02-04] MEDS: EMTRICITABINE 200MG/TENOFOVIR 300MG PO SCH (22:55)
[2017-02-05] MEDS: chlordiazePOXIDE HCL 25 MG CAPSULE PO SCH ×4 (05:33→22:39)
[2017-02-05 10:26] LABS: MCH 24.8 pg (25.7-33.7); MCHC 31.5 g/dl (32.0-35.9); MEAN CELL VOLUME 78.6 fl (80-96); MEAN PLT VOLUME 7.9 fl (7.5-11.1); PLATELET COUNT 191 K/MM3 (134-434); RDW 15.3 % (11.9-15.9); WHITE BLOOD COUNT 5.2 K/mm3 (4.0-10.0)
[2017-02-05] MEDS: PRENATAL VITAMINS W/ FOLIC ACID TABLET (FP) PO SCH (10:39)
[2017-02-05] MEDS: chlordiazePOXIDE HCL 25 MG CAPSULE PO PRN (10:39)
[2017-02-05 10:51] LABS: ALBUMIN 3.6 g/dl (3.4-5.0); ALK PHOS 85 U/L (45-117); ANION GAP 6 (8-16); BILIRUBIN,TOTAL 0.4 mg/dL (0.2-1.0); CALCIUM 8.7 mg/dL (8.5-10.1); CO2 31 mmol/L (21-32); COCKROFT - GAULT 84.53; CREATININE 1.1 mg/dL (0.7-1.3); GLUCOSE,RANDOM 79 mg/dL (74-106); SGOT/AST 18 U/L (15-37); SGPT/ALT 21 U/L (12-78)
[2017-02-05] MEDS: EMTRICITABINE 200MG/TENOFOVIR 300MG PO SCH (11:44)
[2017-02-05] MEDS: RITONAVIR 100 MG TABLET PO SCH (11:44)
[2017-02-05] MEDS ORDERED: INFLUENZA VACCINE 45 MCG/0.5 ML (MDV 16-17) IM ONE (12:00)
--- NOTE | 2017-02-05 12:22 | PN ---
S CIWA - CIWA Score Nausea/Vomitin Muscle Tremors: 3 Anxiety: 3 Agitation: 3 Paroxysmal Sweats: 1-Minimal Palms Moist Orientation: 0-Oriented Tacttile Disturbances: 1-Very Mild Itch/Numbness Auditory Disturbances: 1-Very Mild Visual Disturbances: 1-Very Mild Sensitivity Headache: 2-Mild CIWA-Ar Total Score: 18 BHS Progress Note (SOAP) Subjective: ALERT,IRRITABLE,ANXIOUS,INTERRUPTED SLEEP,TREMOR Objective: 02/05/17 12:20 Vital Signs Temperature 99.1 F 02/05/17 10:11 Pulse Rate 86 02/05/17 10:11 Respiratory Rate 16 02/05/17 10:11 Blood Pressure 100/61 02/05/17 10:11 O2 Sat by Pulse Oximetry (%) EKG NSR Laboratory Last Values WBC 5.2 K/mm3 (4.0-10.0) 02/05/17 07:50 RBC 5.20 M/mm3 (4.00-5.60) 02/05/17 07:50 Hgb 12.9 GM/dL (11.7-16.9) 02/05/17 07:50 Hct 40.9 % (35.4-49) 02/05/17 07:50 MCV 78.6 fl (80-96) L 02/05/17 07:50 MCHC 31.5 g/dl (32.0-35.9) L 02/05/17 07:50 RDW 15.3 % (11.9-15.9) 02/05/17 07:50 Plt Count 191 K/MM3 (134-434) D 02/05/17 07:50 MPV 7.9 fl (7.5-11.1) 02/05/17 07:50 Sodium 142 mmol/L (136-145) 02/05/17 07:50 Potassium 4.3 mmol/L (3.5-5.1) 02/05/17 07:50 Chloride 105 mmol/L (98-107) 02/05/17 07:50 Carbon Dioxide 31 mmol/L (21-32) 02/05/17 07:50 Anion Gap 6 (8-16) L 02/05/17 07:50 BUN 14 mg/dL (7-18) 02/05/17 07:50 Creatinine 1.1 mg/dL (0.7-1.3) D 02/05/17 07:50 Creat Clearance w eGFR > 60 (>60) 02/05/17 07:50 Random Glucose 79 mg/dL (74-106) D 02/05/17 07:50 Calcium 8.7 mg/dL (8.5-10.1) 02/05/17 07:50 Total Bilirubin 0.4 mg/dL (0.2-1.0) D 02/05/17 07:50 AST 18 U/L (15-37) D 02/05/17 07:50 ALT 21 U/L (12-78) D 02/05/17 07:50 Alkaline Phosphatase 85 U/L (45-117) 02/05/17 07:50 Total Protein 7.0 g/dl (6.4-8.2) 02/05/17 07:50 Albumin 3.6 g/dl (3.4-5.0) 02/05/17 07:50 Urine Color Yellow 02/04/17 Unknown Urine Appearance Clear 02/04/17 Unknown Urine pH 6.0 (5.0-8.0) 02/04/17 Unknown Ur Specific [place] 1.024 (1.001-1.035) 02/04/17 Unknown Urine Protein Negative (NEGATIVE) 02/04/17 Unknown Urine Glucose (UA) Negative (NEGATIVE) 02/04/17 Unknown Urine Ketones Negative (NEGATIVE) 02/04/17 Unknown Urine Blood Negative (NEGATIVE) 02/04/17 Unknown Urine Nitrite Negative (NEGATIVE) 02/04/17 Unknown Urine Bilirubin Negative (NEGATIVE) 02/04/17 Unknown Urine Urobilinogen Negative E.U./dl (0.2-1.0) 02/04/17 Unknown Ur Leukocyte Esterase Negative (NEGATIVE) 02/04/17 Unknown RPR Titer Nonreactive (NONREACTIVE) 02/05/17 07:50 02/05/17 12:22 Assessment: 02/05/17 12:22 WITHDRAWAL SYMPTOM Plan: CONTINUE DETOX
[2017-02-05] MEDS: QUEtiapine FUMARATE 100 MG TABLET (FP) PO SCH (22:39)
[2017-02-05] MEDS: MIRTAZAPINE 15 MG TABLET (FP) PO SCH (22:40)
[2017-02-05] MEDS: THIAMINE HCL 100 MG TABLET (FP) PO SCH (22:40)
--- NOTE | 2017-02-06 00:14 | EKG ---
Test Reason : Blood Pressure : / mmHG Vent. Rate : 068 BPM Atrial Rate : 068 BPM P-R Int : 114 ms QRS Dur : 084 ms QT Int : 398 ms P-R-T Axes : 067 052 046 degrees QTc Int : 423 ms NORMAL SINUS RHYTHM POSSIBLE LEFT ATRIAL ENLARGEMENT BORDERLINE ECG WHEN COMPARED WITH ECG OF 16-DEC-2016 13:56, NO SIGNIFICANT CHANGE WAS FOUND Confirmed by OTILIO BAPTISTE MD ([id number]) on 02/06/2017 12:14:25 AM Referred By: Confirmed By:OTILIO BAPTISTE MD
[2017-02-06] MEDS: chlordiazePOXIDE HCL 25 MG CAPSULE PO SCH ×2 (05:55→10:40)
[2017-02-06] MEDS: EMTRICITABINE 200MG/TENOFOVIR 300MG PO SCH (10:40)
[2017-02-06] MEDS: PRENATAL VITAMINS W/ FOLIC ACID TABLET (FP) PO SCH (10:40)
[2017-02-06] MEDS: RITONAVIR 100 MG TABLET PO SCH (10:40)
--- NOTE | 2017-02-06 11:31 | PN ---
S CIWA - CIWA Score Nausea/Vomitin Muscle Tremors: 2 Anxiety: 2 Agitation: 2 Paroxysmal Sweats: 2 Orientation: 0-Oriented Tacttile Disturbances: 1-Very Mild Itch/Numbness Auditory Disturbances: 0-None Visual Disturbances: 0-None Headache: 0-None Present CIWA-Ar Total Score: 11 S Progress Note (SOAP) Subjective: sweats, shakes but very sedated too much seroquel Objective: 02/06/17 11:30 Vital Signs Temperature 98.2 F 02/06/17 10:00 Pulse Rate 84 02/06/17 10:00 Respiratory Rate 20 02/06/17 10:00 Blood Pressure 115/65 02/06/17 10:00 O2 Sat by Pulse Oximetry (%) Laboratory Tests 02/04/17 02/05/17 02/05/17 Unknown 07:50 07:50 WBC 5.2 RBC 5.20 Hgb 12.9 Hct 40.9 MCV 78.6 L MCHC 31.5 L RDW 15.3 Plt Count 191 D MPV 7.9 Sodium 142 Potassium 4.3 Chloride 105 Carbon Dioxide 31 Anion Gap 6 L BUN 14 Creatinine 1.1 D Creat Clearance w eGFR > 60 Random Glucose 79 D Calcium 8.7 Total Bilirubin 0.4 D AST 18 D ALT 21 D Alkaline Phosphatase 85 Total Protein 7.0 Albumin 3.6 Urine Color Yellow Urine Appearance Clear Urine pH 6.0 Ur Specific [place] 1.024 Urine Protein Negative Urine Glucose (UA) Negative Urine Ketones Negative Urine Blood Negative Urine Nitrite Negative Urine Bilirubin Negative Urine Urobilinogen Negative Ur Leukocyte Esterase Negative RPR Titer 02/05/17 07:50 WBC RBC Hgb Hct MCV MCHC RDW Plt Count MPV Sodium Potassium Chloride Carbon Dioxide Anion Gap BUN Creatinine Creat Clearance w eGFR Random Glucose Calcium Total Bilirubin AST ALT Alkaline Phosphatase Total Protein Albumin Urine Color Urine Appearance Urine pH Ur Specific [place] Urine Protein Urine Glucose (UA) Urine Ketones Urine Blood Urine Nitrite Urine Bilirubin Urine Urobilinogen Ur Leukocyte Esterase RPR Titer Nonreactive pt lying in bed sleepy easily arousable and maitains an appropriate conversation Assessment: 02/06/17 11:31 withdrawal sx;s Plan: cont detox increase fluids pysch re-eval
--- NOTE | 2017-02-06 16:11 | PN ---
[facility] Progress Note Note: Psychiatry Attending's note : Asked for a follow up consultation. Issue : oversedation.Seroquel is suspected as etiology. Patient seen.He is observed as ambulatory,steady and conversant. Mr Martinez reports that,on 02/05/17,he felt drowsy and disoriented. " Only seroquel can make me feel like that.This dose is too strong." " Give me 50 mg instead of 100.I need that medication for insomnia." Patient is a good/reliable historian.Hospital course : uneventful. Mental status : clear sensorium,intact cognition,no perceptual disturbances. Speech remains clear,goal-directed and relevant.Stable mood/appropriate affect. Patient is not suicidal or homicidal.Adherent to his careplan.He is at his baseline. Intervention : Seroquel is reduced to 50 mg po hs. Side effects/benefits revisited with patient. Mr Martinez is in agreement with this plan of care. Nursing staff is made aware.
[2017-02-06] MEDS: chlordiazePOXIDE 5 MG CAPSULE PO SCH ×2 (17:20→22:51)
[2017-02-06] MEDS: THIAMINE HCL 100 MG TABLET (FP) PO SCH (22:51)
[2017-02-06] MEDS: QUEtiapine FUMARATE 50 MG TABLET PO SCH (22:51)
[2017-02-06] MEDS: MIRTAZAPINE 15 MG TABLET (FP) PO SCH (22:51)
[2017-02-07] MEDS: chlordiazePOXIDE 5 MG CAPSULE PO SCH ×2 (06:04→10:29)
[2017-02-07] MEDS: RITONAVIR 100 MG TABLET PO SCH (10:28)
[2017-02-07] MEDS: PRENATAL VITAMINS W/ FOLIC ACID TABLET (FP) PO SCH (10:28)
[2017-02-07] MEDS: EMTRICITABINE 200MG/TENOFOVIR 300MG PO SCH (10:28)
--- NOTE | 2017-02-07 10:42 | PN ---
BHS Progress Note (SOAP) Subjective: agitation Objective: 02/07/17 10:41 Vital Signs Temperature 98.8 F 02/07/17 09:35 Pulse Rate 85 02/07/17 09:35 Respiratory Rate 16 02/07/17 09:35 Blood Pressure 109/58 02/07/17 09:35 O2 Sat by Pulse Oximetry (%) awake/alert ambulating no acute distress Assessment: 02/07/17 10:42 withdrawal sx Plan: continue detox increase fluids d/c in am
[2017-02-07] MEDS: chlordiazePOXIDE HCL 10 MG CAPSULE PO SCH ×2 (17:30→22:38)
[2017-02-07] MEDS: QUEtiapine FUMARATE 50 MG TABLET PO SCH (22:38)
[2017-02-07] MEDS: MIRTAZAPINE 15 MG TABLET (FP) PO SCH (22:39)
[2017-02-07] MEDS: THIAMINE HCL 100 MG TABLET (FP) PO SCH (22:39)
[2017-02-08] MEDS: chlordiazePOXIDE HCL 10 MG CAPSULE PO SCH (05:45)
--- NOTE | 2017-02-08 08:47 | DS ---
[facility] Detox Discharge Summary Admission Date: 02/04/17 Discharge Date: 02/08/17 - History Present History: Alcohol Dependence, Sedative Dependence - Physical Exam Results Vital Signs: Vital Signs Temperature 97 F L 02/08/17 06:28 Pulse Rate 93 H 02/08/17 06:28 Respiratory Rate 18 02/08/17 06:28 Blood Pressure 121/91 02/08/17 06:28 O2 Sat by Pulse Oximetry (%) - Treatment Hospital Course: Detox Protocol Followed, Detoxed Safely, Responded well, Discharged Condition Good - Medication Discharge Medications: Ambulatory Orders Elviteg/Khadra/Emtric/Tenofo Dis [Stribild Tablet] 1 tab PO DAILY #30 tablet 03/14 Mirtazapine [Remeron -] 30 mg PO HS #30 tablet 05/16/16 Quetiapine Fumarate [Seroquel -] 200 mg PO HS #30 tab 11/10/16 Calcium Carbonate/Vitamin D3 [Oystercal-D 500 mg-400 Unit Tb] 1 each PO DAILY Multivitamin [Poly-Vitamin] 1 each PO DAILY 12/16/16 Mirtazapine 7.5 mg PO HS #30 tablet 02/04/17 Quetiapine Fumarate [Seroquel] 100 mg PO HS #30 tablet 02/04/17 - Diagnosis (1) Alcohol dependence with uncomplicated withdrawal Current Visit: Yes Status: Chronic (2) Cocaine dependence, uncomplicated Current Visit: Yes Status: Chronic (3) Insomnia Current Visit: Yes Status: Chronic Qualifiers: Insomnia type: unspecified Qualified Code(s): G47.00 - Insomnia, unspecified (4) Human immunodeficiency virus infection Current Visit: Yes Status: Chronic (5) Schizoaffective Disorder Current Visit: Yes Status: Chronic (6) Sedative, hypnotic or anxiolytic dependence with withdrawal, uncomplicated Current Visit: No Status: Acute (7) Seizure Current Visit: Yes Status: Chronic - AMA Did Patient Leave Against Medical Advice: No
[2017-02-08 09:43] VITALS: BP 127/71; PULSE 109; TEMP 98.4
== END 2017-02-08 08:51 | disposition home or self-care (01) | DRG 774 ==
LOC: YASAS 10:27 → Y3N 14:16 → Y6N 15:07
PROVIDERS: ADMIT Internal Medicine; ATTEND Internal Medicine Addiction Medicine
PROC: HZ2ZZZZ Detoxification Services for Substance Abuse Treatment (ICD-10-PCS; principal; 2017-02-04)
DX: F10.230 Alcohol dependence with withdrawal, uncomplicated (principal); F14.20 Cocaine dependence, uncomplicated; F25.9 Schizoaffective disorder, unspecified; F19.24 Other psychoactive substance dependence with psychoactive substance-induced mood disorder; G47.00 Insomnia, unspecified; Z21 Asymptomatic human immunodeficiency virus [HIV] infection status
CPT/HCPCS: 36415; 80053; 81003; 85027; 86593; 93005; 93010; G0008; Q2037

== ENCOUNTER 2017-03-30 09:35 | Inpatient (IN) | payer OTHER ==
[2017-03-30 09:46] VITALS: BMI 24.6
--- NOTE | 2017-03-30 13:36 | HP ---
CIWA Score - CIWA Score Nausea/Vomitin Muscle Tremors: 3 Anxiety: 3 Agitation: 2 Paroxysmal Sweats: 1-Minimal Palms Moist Orientation: 0-Oriented Tacttile Disturbances: 2-Mild Itch/Numbness/Burn Auditory Disturbances: 2-Mild Harshness/Frighten Visual Disturbances: 2-Mild Sensitivity Headache: 2-Mild CIWA-Ar Total Score: 20 Admission ROS BHS - HPI Chief Complaint: I NEED HELP TO TOP DRINKING ALCOHOL COCAINE Allergies/Adverse Reactions: Allergies Allergy/AdvReac Type Severity Reaction Status Date / Time No Known Allergies Allergy Verified 03/30/17 10:02 History of Present Illness: THIS 51 YEARS OLD MALE WITH ALCOHOL AND COCAINE DEPENDENCE,REQUESTED DETOX , LAST DETOX 02/04/17 TO 02/08/17 [facility]NCOPE SEVERAL ADMISSIONS IN DETOX BUT RELAPSED WEIGHT LOSS BIPOLAR DISORDER AND DEPRESSION LONGEST PERIOD OF SOBRIETY 6 YEARS Exam Limitations: No Limitations - Ebola screening Have you traveled outside of the country in the last 21 days: No Have you had contact with anyone from an Ebola affected area: No Have you been sick,other than usual withdrawal symptoms: No - Review of Systems Constitutional: Loss of Appetite, Malaise, Night Sweats, Changes in sleep, Weakness, Unintentional Wgt. Loss EENT: reports: Nose Congestion Respiratory: reports: No Symptoms reported Cardiac: reports: Palpitations GI: reports: Diarrhea, Nausea, Vomiting, Abdominal cramping : reports: No Symptoms Reported Musculoskeletal: reports: Back Pain, Muscle Pain Integumentary: reports: Dryness Neuro: reports: Headache, Tremors Endocrine: reports: No Symptoms Reported Hematology: reports: No Symptoms Reported Psychiatric: reports: No Sypmtoms Reported, Judgement Intact, Mood/Affect Appropiate, Orientated x3 (BIPOLAR DISORDER), Depressed, other Patient History - Patient Medical History Hx Anemia: No Hx Asthma: No Hx Chronic Obstructive Pulmonary Disease (COPD): No Hx Cancer: No Hx Cardiac Disorders: No Hx Congestive Heart Failure: No Hx Hypertension: No Hx Hypercholesterolemia: No Hx Pacemaker: No HX Cerebrovascular Accident: No Hx Seizures: No Hx Dementia: No Hx Diabetes: No Hx Gastrointestinal Disorders: No Hx Liver Disease: No Hx Genitourinary Disorders: No Hx Sexually Transmitted Disorders: No Hx Renal Disease (ESRD): No Hx Thyroid Disease: No Hx Human Immunodeficiency Virus (HIV): Yes (SINCE 1998;ON MED, t cells about 500 vl <20) Hx Hepatitis C: No Hx Depression: Yes Hx Suicide Attempt: No Hx Bipolar Disorder: Yes (on meds, go to [facility], hosp 5 yrs ago ) Hx Schizophrenia: No Other Medical History: NO SUICIDAL,NO HOMICIDL - Patient Surgical History Past Surgical History: Yes Hx Neurologic Surgery: No Hx Cataract Extraction: No Hx Cardiac Surgery: No Hx Lung Surgery: No Hx Breast Surgery: No Hx Breast Biopsy: No Hx Abdominal Surgery: No Hx Appendectomy: No Hx Cholecystectomy: No Hx Genitourinary Surgery: No Hx Section: No Hx Orthopedic Surgery: No Other Surgical History: REPAIR OF LACERATION RIGHT FOREARM (BOXING). Anesthesia Reaction: No - PPD History Previous Implant?: Yes Implanted On Prior [facility] Admission?: Yes Date: 05/07/16 Results: 0 mm PPD to be Administered?: No - Smoking Cessation Smoking history: Never smoked Have you smoked in the past 12 months: No Cigars Per Day: 0 Hx Chewing Tobacco Use: No Initiated information on smoking cessation: No - Substance & Tx. History Hx Alcohol Use: Yes Hx Substance Use: Yes Substance Use Type: Alcohol, Cocaine - Substances Abused Cocaine Route: Injection Frequency: 3-6 times per week Amount used: $300 Age of first use: 26 Date of Last Use: 03/29/17 Alcohol-cognac/four krystin Route: Oral Frequency: Daily Amount used: 1-2 pts./2 (24 oz.) Age of first use: 17 Date of Last Use: 03/30/17 Xanax Route: Oral Frequency: 1-2 times per week Amount used: 4 mg. Age of first use: 49 Date of Last Use: 03/27/17 Oxycodone Route: Oral Frequency: 1-3 times last 30 days Amount used: 2 tabs. (30 mg.) Age of first use: 51 Date of Last Use: 04/03/17 Family Disease History - Family Disease History Family Disease History: Diabetes: Mother, Heart Disease: Mother, CA: Brother ( lung,) Admission Physical Exam BHS - Vital Signs Vital Signs: Vital Signs - 24 hr 03/30/17 09:42 Temperature 97.3 F L Pulse Rate 90 Respiratory 18 Rate Blood Pressure 116/63 - Physical General Appearance: Yes: Moderate Distress, Tremorous, Irritable, Sweating HEENTM: Yes: Hearing grossly Normal, Normal ENT Inspection, Pharynx Normal Respiratory: Yes: Lungs Clear, Normal Breath Sounds, No Respiratory Distress Neck: Yes: Within Normal Limits, Trachea in good position Breast: Yes: Within Normal Limits Cardiology: Yes: Within Normal Limits, Regular Rhythm, Regular Rate, S1, S2 Abdominal: Yes: Within Normal Limits, Normal Bowel Sounds, Non Tender, Flat, Soft Genitourinary: Yes: Within Normal Limits Back: Yes: Within Normal Limits Musculoskeletal: Yes: Within Normal Limits, full range of Motion, Back pain, Muscle Pain Extremities: Yes: Within Normal Limits, Normal Range of Motion, Tremors Neurological: Yes: associate agent insurance sales II-XII NML intact, Fully Oriented, Alert, Motor Strength 5/5 Integumentary: Yes: Dry Lymphatic: Yes: Within Normal Limits - Diagnostic (1) Syncope Current Visit: No Status: Active (2) Alcohol dependence with uncomplicated withdrawal Current Visit: No Status: Chronic (3) Cocaine dependence, uncomplicated Current Visit: No Status: Chronic (4) Human immunodeficiency virus infection Current Visit: No Status: Chronic Comment: on stribild (5) Weight decreased Current Visit: No Status: Chronic (6) Bipolar disorder Current Visit: No Status: Suspected Comment: Historical diagnosis. Cleared for Admission [facility] - Detox or Rehab [facility] Level of Care: Medically Managed Detox Regimen/Protocol: Librium [facility] Breath Alcohol Content Breath Alcohol Content: 0.056 Urine Drug Screen - Results Drug Screen Negative: No Urine Drug Screen Results: BRITTANIE-Cocaine
[2017-03-30] MEDS ORDERED: ACETAMINOPHEN 325 MG TABLET (FP) PO PRN (13:52)
[2017-03-30] MEDS ORDERED: P-EPHED 60MG/TRIPROLIDI 2.5MG TABLET PO PRN (13:52)
[2017-03-30] MEDS ORDERED: MAG HYDROX/AL HYDROX/SIMETH 30 ML UNIT-DOSE CUP PO PRN (13:52)
[2017-03-30] MEDS ORDERED: MAGNESIUM HYDROX 2400MG/30ML ORAL SUSPENSION 30 ML CUP PO PRN (13:52)
[2017-03-30] MEDS ORDERED: diphenhydrAMINE HCL 50 MG CAPSULE PO PRN (13:52)
[2017-03-30] MEDS ORDERED: MENTHOL/PHENOL 1 EACH UD MM PRN (13:52)
[2017-03-30] MEDS ORDERED: MAGNESIUM CITRATE 300 ML BOTTLE PO PRN (13:52)
[2017-03-30] MEDS ORDERED: chlordiazePOXIDE HCL 25 MG CAPSULE PO PRN (13:52)
[2017-03-30] MEDS ORDERED: hydrOXYzine PAMOATE 50 MG CAPSULE (FP) PO PRN (13:52)
[2017-03-30] MEDS ORDERED: IBUPROFEN 400 MG TABLET (FP) PO PRN (13:52)
[2017-03-30] MEDS ORDERED: LOPERAMIDE HCL 2 MG CAPSULE PO PRN (13:52)
[2017-03-30] MEDS ORDERED: guaiFENesin/D-METHORPHAN HB 10 ML UNIT-DOSE CUPS PO PRN (13:52)
[2017-03-30] MEDS ORDERED: chlordiazePOXIDE HCL 25 MG CAPSULE PO ONE (14:04)
--- NOTE | 2017-03-30 14:52 | CONSULT ---
[facility] Psychiatric Consult - Data Date of interview: 03/30/17 Admission source: [facility] Identifying data: This is 51 years old male with psychiatric hospitalization history, history of Bipolar disorder intoxicated with: Alcohol, Cocaine, Xanax , PCP Substance Abuse History: - Smoking Cessation. Smoking history: Never smoked. Have you smoked in the past 12 months: No. Cigars Per Day: 0. Hx Chewing Tobacco Use: No. Initiated information on smoking cessation: No. - Substance & Tx. History. Hx Alcohol Use: Yes. Hx Substance Use: Yes. Substance Use Type : Alcohol, Cocaine. - Substances Abused. Cocaine. Route: Injection. Frequency: 3-6 times per week. Amount used: $300. Age of first use: 26. Date of Last Use: 03/29/17. Alcohol-cognac/four krystin. Route: Oral. Frequency: Daily. Amount used: 1-2 pts./2 (24 oz.). Age of first use: 17. Date of Last Use: 03/30/17. Xanax. Route: Oral. Frequency: 1-2 times per week. Amount used: 4 mg. Age of first use: 49. Date of Last Use: 03/27/17. Oxycodone. Route: Oral. Frequency: 1-3 times last 30 days. Amount used: 2 tabs. (30 mg.) . Age of first use: 51. Date of Last Use: 04/03/17 Medical History: SYNCOPE HISTORY, WEIGHT LOSS HISTORY, SEIZURE HISTORY Psychiatric History: Patient reports history of Bipolar disorder, reports most rcent psychiatric admission on more then 10 years ago, reports taking prior to admission: Remeron 30mg po qhs. Seroquel 100mg po qhs Physical/Sexual Abuse/Trauma History: Denies Additional Comment: Remeron 30mg po qhs. Seroquel 100mg po qhs Mental Status Exam - Mental Status Exam Alert and Oriented to: Person Cognitive Function: Fair Patient Appearance: Well Groomed Mood: Anxious, Happy Affect: Labile Patient Behavior: Impulsive, Talkative Speech Pattern: Excessive Voice Loudness: Mildly Loud Thought Process: Circumstantial Thought Disorder: Being Controlled Hallucinations: Denies Suicidal Ideation: Denies Homicidal Ideation: Denies Insight/Judgement: Fair Sleep: Difficulty falling asleep Appetite: Weight loss Muscle strength/Tone: Mild Hypertonicity Gait/Station: Normal Additional Comments: Remeron 30mg po qhs. Seroquel 100mg po qhs Psychiatric Findings - Problem List ([place] 1, 2,3) (1) Alcohol dependence with uncomplicated withdrawal Current Visit: Yes Status: Chronic (2) Cocaine dependence, uncomplicated Current Visit: Yes Status: Chronic (3) Bipolar disorder Current Visit: Yes Status: Suspected Comment: Historical diagnosis. (4) Sedative, hypnotic or anxiolytic dependence with withdrawal, uncomplicated Current Visit: No Status: Acute (5) Substance induced mood disorder Current Visit: No Status: Acute (6) PCP (phencyclidine) abuse Current Visit: No Status: Chronic (7) Schizoaffective Disorder Current Visit: No Status: Chronic Comment: History. - Initial Treatment Plan Initial Treatment Plan: Remeron 30mg po qhs. Seroquel 100mg po qhs
[2017-03-30] MEDS: chlordiazePOXIDE HCL 25 MG CAPSULE PO SCH ×2 (17:25→22:24)
[2017-03-30] MEDS ORDERED: QUEtiapine FUMARATE 100 MG TABLET (FP) PO SCH (22:00)
[2017-03-30] MEDS ORDERED: THIAMINE HCL 100 MG TABLET (FP) PO SCH (22:00)
[2017-03-30] MEDS ORDERED: MIRTAZAPINE 30 MG TABLET (FP) PO SCH (22:00)
[2017-03-30 23:14] LABS: URINE APPEARANCE CLEAR; URINE BILIRUBIN NEGATIVE (NEGATIVE); URINE BLOOD NEGATIVE (NEGATIVE); URINE COLOR YELLOW; URINE GLUCOSE (UA) NEGATIVE (NEGATIVE); URINE KETONE NEGATIVE (NEGATIVE); URINE LEUK ESTERASE NEGATIVE (NEGATIVE); URINE NITRITE NEGATIVE (NEGATIVE); URINE PROTEIN NEGATIVE (NEGATIVE); URINE UROBILINOGEN 4.0 E.U/dl E.U./dl (0.2-1.0)
[2017-03-31] MEDS: chlordiazePOXIDE HCL 25 MG CAPSULE PO SCH ×2 (05:33→10:42)
[2017-03-31] MEDS ORDERED: PRENATAL VITAMINS W/ FOLIC ACID TABLET (FP) PO SCH (10:00)
[2017-03-31] MEDS ORDERED: CALCIUM 500MG/VIT-D 200 UNITS COMBO TABLET (FP) PO SCH (10:00)
[2017-03-31 10:01] LABS: MCH 24.6 pg (25.7-33.7); MCHC 31.7 g/dl (32.0-35.9); MEAN CELL VOLUME 77.5 fl (80-96); MEAN PLT VOLUME 8.6 fl (7.5-11.1); PLATELET COUNT 242 K/MM3 (134-434); RDW 14.7 % (11.9-15.9)
[2017-03-31 10:28] LABS: ALBUMIN 3.8 g/dl (3.4-5.0); ALK PHOS 82 U/L (45-117); ANION GAP 10 (8-16); BILIRUBIN,TOTAL 0.5 mg/dL (0.2-1.0); CALCIUM 9.1 mg/dL (8.5-10.1); CO2 26 mmol/L (21-32); CREATININE 1.5 mg/dL (0.7-1.3); GLUCOSE,RANDOM 89 mg/dL (74-106); SGOT/AST 21 U/L (15-37); SGPT/ALT 20 U/L (12-78); TOT PROT 7.7 g/dl (6.4-8.2)
--- NOTE | 2017-03-31 12:54 | PN ---
S CIWA - CIWA Score Nausea/Vomitin-Mild Nausea/No Vomiting Muscle Tremors: 3 Anxiety: 2 Agitation: 2 Paroxysmal Sweats: No Perspiration Orientation: 0-Oriented Tacttile Disturbances: 3-Moderate Itch/Numb/Burn Auditory Disturbances: 1-Very Mild Visual Disturbances: 2-Mild Sensitivity Headache: 0-None Present CIWA-Ar Total Score: 14 BHS Progress Note (SOAP) Subjective: Interrupted sleep, Tremors, Fatigue. Objective: PT. A & O X 3. NO ACUTE DISTRESS. 03/31/17 12:51 Vital Signs Temperature 96.1 F L 03/31/17 09:51 Pulse Rate 94 H 03/31/17 09:51 Respiratory Rate 18 03/31/17 09:51 Blood Pressure 122/83 03/31/17 09:51 O2 Sat by Pulse Oximetry (%) Laboratory Tests 03/30/17 03/31/17 03/31/17 20:35 06:00 06:00 WBC 6.0 RBC 5.39 Hgb 13.2 Hct 41.8 MCV 77.5 L MCHC 31.7 L RDW 14.7 Plt Count 242 D MPV 8.6 Sodium 141 Potassium 4.3 Chloride 105 Carbon Dioxide 26 Anion Gap 10 BUN 15 Creatinine 1.5 H D Creat Clearance w eGFR 49.54 Random Glucose 89 Calcium 9.1 Total Bilirubin 0.5 D AST 21 ALT 20 Alkaline Phosphatase 82 Total Protein 7.7 Albumin 3.8 Urine Color Yellow Urine Appearance Clear Urine pH 6.0 Ur Specific [place] 1.025 Urine Protein Negative Urine Glucose (UA) Negative Urine Ketones Negative Urine Blood Negative Urine Nitrite Negative Urine Bilirubin Negative Urine Urobilinogen 4.0 e.u/dl Ur Leukocyte Esterase Negative LABS NOTED. Assessment: 03/31/17 12:51 WITHDRAWAL SYMPTOMS. Plan: CONTINUE DETOX. D/C MAGNESIUM-CONTAINING MEDS. ADVISED PATIENT TO FOLLOW-UP WITH [facility] AFTER DISCHARGE FROM DETOX FOR GENERAL MEDICAL ASSESSMENT AND FOR ABNORMAL ADMISSION RENAL LAB VALUES (CREATININE, GFR) .
[2017-03-31 13:35] VITALS: BP 121/84; PULSE 75; TEMP 96.9
--- NOTE | 2017-03-31 15:40 | DS ---
[facility] Detox Discharge Summary Admission Date: 03/30/17 Discharge Date: 03/31/17 - History Present History: Alcohol Dependence, Cocaine Dependence Additional Comments: ADVISED PATIENT TO FOLLOW-UP WITH [facility] FOR GENERAL MEDICAL ASSESSMENT. Pertinent Past History: Bipolar Disorder, Depression, HIV +. - Physical Exam Results Vital Signs: Vital Signs Temperature 96.9 F L 03/31/17 13:34 Pulse Rate 75 03/31/17 13:34 Respiratory Rate 20 03/31/17 13:34 Blood Pressure 121/84 03/31/17 13:34 O2 Sat by Pulse Oximetry (%) Pertinent Admission Physical Exam Findings: WITHDRAWAL SYMPTOMS. Laboratory Tests 03/30/17 03/31/17 03/31/17 20:35 06:00 06:00 WBC 6.0 RBC 5.39 Hgb 13.2 Hct 41.8 MCV 77.5 L MCHC 31.7 L RDW 14.7 Plt Count 242 D MPV 8.6 Sodium 141 Potassium 4.3 Chloride 105 Carbon Dioxide 26 Anion Gap 10 BUN 15 Creatinine 1.5 H D Creat Clearance w eGFR 49.54 Random Glucose 89 Calcium 9.1 Total Bilirubin 0.5 D AST 21 ALT 20 Alkaline Phosphatase 82 Total Protein 7.7 Albumin 3.8 Urine Color Yellow Urine Appearance Clear Urine pH 6.0 Ur Specific [place] 1.025 Urine Protein Negative Urine Glucose (UA) Negative Urine Ketones Negative Urine Blood Negative Urine Nitrite Negative Urine Bilirubin Negative Urine Urobilinogen 4.0 e.u/dl Ur Leukocyte Esterase Negative RPR Titer 03/31/17 06:00 WBC RBC Hgb Hct MCV MCHC RDW Plt Count MPV Sodium Potassium Chloride Carbon Dioxide Anion Gap BUN Creatinine Creat Clearance w eGFR Random Glucose Calcium Total Bilirubin AST ALT Alkaline Phosphatase Total Protein Albumin Urine Color Urine Appearance Urine pH Ur Specific [place] Urine Protein Urine Glucose (UA) Urine Ketones Urine Blood Urine Nitrite Urine Bilirubin Urine Urobilinogen Ur Leukocyte Esterase RPR Titer Nonreactive LABS NOTED. - Treatment Hospital Course: Detoxed Safely - Medication Discharge Medications: Ambulatory Orders Elviteg/Khadra/Emtric/Tenofo Dis [Stribild Tablet] 1 tab PO DAILY #30 tablet 03/14 Mirtazapine [Remeron -] 30 mg PO HS #30 tablet 05/16/16 Multivitamin [Poly-Vitamin] 1 each PO DAILY 12/16/16 Quetiapine Fumarate [Seroquel] 100 mg PO HS #30 tablet 02/04/17 Calcium Carbonate/Vitamin D3 [Oystercal-D 500 mg-400 Unit Tb] 1 each PO DAILY # 30 mg 02/08/17 Mirtazapine [Remeron -] 30 mg PO HS #30 tablet 03/30/17 Quetiapine Fumarate [Seroquel] 100 mg PO HS #30 tablet 03/30/17 Quetiapine Fumarate [Seroquel] 100 tab PO HS #30 tablet 03/30/17 - Diagnosis (1) Alcohol dependence with uncomplicated withdrawal Status: Acute (2) Cocaine dependence, uncomplicated Status: Acute (3) Human immunodeficiency virus infection Status: Chronic (4) Substance induced mood disorder Status: Acute (5) Weight decreased Status: Chronic (6) Bipolar disorder Status: Suspected Qualifiers: Active/Remission status: remission status unspecified Qualified Code (s): F31.9 - Bipolar disorder, unspecified (7) Sedative, hypnotic or anxiolytic dependence with withdrawal, uncomplicated Status: Acute (8) PCP (phencyclidine) abuse Status: Chronic (9) Schizoaffective Disorder Status: Chronic - AMA Did Patient Leave Against Medical Advice: Yes (PATIENT DID NOT WISH TO SATAY TO COMPLETE DETOX REGIMEN.)
[2017-03-31] MEDS ORDERED: chlordiazePOXIDE HCL 25 MG CAPSULE PO SCH (17:00)
[2017-04-01] MEDS ORDERED: chlordiazePOXIDE 5 MG CAPSULE PO SCH (17:00)
[2017-04-02] MEDS ORDERED: chlordiazePOXIDE HCL 10 MG CAPSULE PO SCH (17:00)
--- NOTE | 2017-04-02 22:24 | EKG ---
Test Reason : Blood Pressure : / mmHG Vent. Rate : 078 BPM Atrial Rate : 078 BPM P-R Int : 108 ms QRS Dur : 086 ms QT Int : 360 ms P-R-T Axes : 074 048 035 degrees QTc Int : 410 ms SINUS RHYTHM WITH SHORT SD OTHERWISE NORMAL ECG WHEN COMPARED WITH ECG OF 04-FEB-2017 13:48, NO SIGNIFICANT CHANGE WAS FOUND Confirmed by JAY ORTEGA MD ([id number]) on 04/02/2017 10:23:52 PM Referred By: Richard Mejía Confirmed By:JAY ORTEGA MD
== END 2017-03-31 15:00 | disposition left against medical advice (07) | DRG 770 ==
LOC: YASAS 09:35 → Y3N 10:44
PROVIDERS: ADMIT Internal Medicine; ATTEND Internal Medicine
PROC: HZ2ZZZZ Detoxification Services for Substance Abuse Treatment (ICD-10-PCS; principal; 2017-03-31)
DX: F13.230 Sedative, hypnotic or anxiolytic dependence with withdrawal, uncomplicated (principal); F10.230 Alcohol dependence with withdrawal, uncomplicated; F14.20 Cocaine dependence, uncomplicated; F16.10 Hallucinogen abuse, uncomplicated; F19.24 Other psychoactive substance dependence with psychoactive substance-induced mood disorder; F25.9 Schizoaffective disorder, unspecified; F31.9 Bipolar disorder, unspecified; Z21 Asymptomatic human immunodeficiency virus [HIV] infection status
CPT/HCPCS: 36415; 80053; 81003; 85027; 86593; 93005; 93010

== ENCOUNTER 2017-05-08 14:28 | Inpatient (IN) | payer OTHER ==
[2017-05-08 15:47] VITALS: BMI 23.6
--- NOTE | 2017-05-08 16:59 | HP ---
CIWA Score - CIWA Score Nausea/Vomitin-No Nausea/No Vomiting Muscle Tremors: 4-Moderate,w/Arms Extend Anxiety: 5 Agitation: 4-Moderately Restless Paroxysmal Sweats: 1-Minimal Palms Moist Orientation: 0-Oriented Tacttile Disturbances: 3-Moderate Itch/Numb/Burn Auditory Disturbances: 0-None Visual Disturbances: 0-None Headache: 0-None Present CIWA-Ar Total Score: 17 Admission ROS BHS - HPI Chief Complaint: DETOX TX FOR ALCOHOL AND XANAX DEPENDENCE SEEKING DETOX TX Allergies/Adverse Reactions: Allergies Allergy/AdvReac Type Severity Reaction Status Date / Time No Known Allergies Allergy Verified 03/30/17 10:02 History of Present Illness: 51 Y/O AA/MALE WITH A HX OF ALCOHOL,XANAX AND COCAINE DEPENDENCE SEEKING DETOX TX Exam Limitations: No Limitations, Intoxication - Ebola screening Have you traveled outside of the country in the last 21 days: No Have you had contact with anyone from an Ebola affected area: No Have you been sick,other than usual withdrawal symptoms: No Do you have a fever: No - Review of Systems Constitutional: Chills, Loss of Appetite, Night Sweats, Changes in sleep ( RACING THOUGHTS/INSOMNIA), Unintentional Wgt. Loss EENT: reports: Blurred Vision, Nose Congestion, Dental Problems (CHIPPED TOOTH) Respiratory: reports: No Symptoms reported Cardiac: reports: Lightheadedness GI: reports: Diarrhea, Poor Appetite, Poor Fluid Intake : reports: Dysuria Musculoskeletal: reports: Joint Pain, Muscle Pain Integumentary: reports: Bruising (HEALING BRUISE ON RIGHT EYEBROW AND SHOULDER LEFT ELBOW DUE TO FALL ON INTOXICATION 2-3 DAYS AGO.) Neuro: reports: Numbness, Tingling, Tremors, Unsteady Gait, Dizziness Endocrine: reports: No Symptoms Reported Hematology: reports: No Symptoms Reported Psychiatric: reports: Orientated x3, Anxious, Depressed Other Systems: Reviewed and Negative Patient History - Patient Medical History Hx Anemia: No Hx Asthma: No Hx Chronic Obstructive Pulmonary Disease (COPD): No Hx Cancer: No Hx Cardiac Disorders: No Hx Congestive Heart Failure: No Hx Hypertension: No Hx Hypercholesterolemia: No Hx Pacemaker: No HX Cerebrovascular Accident: No Hx Seizures: No Hx Dementia: No Hx Diabetes: No Hx Gastrointestinal Disorders: No Hx Liver Disease: No Hx Genitourinary Disorders: No Hx Sexually Transmitted Disorders: No Hx Renal Disease (ESRD): No Hx Thyroid Disease: No Hx Human Immunodeficiency Virus (HIV): Yes (SINCE 1998;ON MED, t cells about 500 vl-UNDETECTABLE) Hx Hepatitis C: No Hx Depression: Yes (WAS ON SEROQUEL AND ABILIFY) Hx Suicide Attempt: No (DENIES) Hx Bipolar Disorder: Yes (on meds, go to [facility], hosp 5 yrs ago ) Hx Schizophrenia: No - Patient Surgical History Past Surgical History: Yes Hx Neurologic Surgery: No Hx Cataract Extraction: No Hx Cardiac Surgery: No Hx Lung Surgery: No Hx Breast Surgery: No Hx Breast Biopsy: No Hx Abdominal Surgery: No Hx Appendectomy: No Hx Cholecystectomy: No Hx Genitourinary Surgery: No Hx Orthopedic Surgery: No Other Surgical History: REPAIR OF LACERATION RIGHT FOREARM (BOXING). Anesthesia Reaction: No - PPD History Previous Implant?: Yes Documented Results: Negative w/proof Implanted On Prior [facility] Admission?: Yes Date: 05/07/16 Results: 0 mm PPD to be Administered?: Yes - Reproductive History Patient is a Female of Child Bearing Age (11 -55 yrs old): No (MALE) Patient : (N/A) - Smoking Cessation Smoking history: Current some day smoker Have you smoked in the past 12 months: No Aproximately how many cigarettes per day: 20 Cigars Per Day: 0 Hx Chewing Tobacco Use: No Initiated information on smoking cessation: Yes 'Breaking Loose' booklet given: 05/08/17 - Substance & Tx. History Hx Alcohol Use: Yes (VODKA/LISBETH) Hx Substance Use: Yes (XANAX/COCAINE(HEROIN ON OCASSIONS BUT NOT A CHOICE)) Substance Use Type: Alcohol, Cocaine, Heroin (USED 2 BAGS OF HEROIN TODAY. STSTES HE IS NOT A REGULAR HEROIN USER.), Tranquilizers Hx Substance Use Treatment: Yes - Substances Abused LISBETH/VODKA Route: Oral Frequency: Daily Amount used: 1 QUART/2 PTS Date of Last Use: 05/08/17 Alprazolam (Xanax) Route: Oral Frequency: 3-6 times per week (5X/WEEK) Amount used: 3 STIX Age of first use: 41 Date of Last Use: 05/08/17 Cocaine Route: Smoking (AND SNORT) Frequency: Daily Amount used: 28 GRAM Age of first use: 26 Date of Last Use: 05/08/17 Family Disease History - Family Disease History Family Disease History: Diabetes: Mother, Heart Disease: Mother, CA: Brother ( lung,) Admission Physical Exam [facility] - Vital Signs Vital Signs: Vital Signs - 24 hr 05/08/17 15:44 Temperature 97.8 F Pulse Rate 86 Respiratory 16 Rate Blood Pressure 100/60 - Physical General Appearance: Yes: Moderate Distress, Alcohol on Breath, Intoxicated, Irritable, Anxious HEENTM: Yes: EOMI, Normocephalic, REVA, Pharynx Normal Respiratory: Yes: Chest Non-Tender, Lungs Clear, Normal Breath Sounds, No Respiratory Distress Neck: Yes: No masses,lesions,Nodules, Supple, Trachea in good position Breast: Yes: Breast Exam Deferred Cardiology: Yes: Regular Rhythm, Regular Rate, S1, S2 Abdominal: Yes: Normal Bowel Sounds, Non Tender, Soft Genitourinary: Yes: Other (N/C) Back: Yes: Within Normal Limits Musculoskeletal: Yes: full range of Motion, Gait Steady Extremities: Yes: Normal Range of Motion, Non-Tender Neurological: Yes: consulting analyst II-XII NML intact, Fully Oriented, Alert, Motor Strength 5/5 Integumentary: Yes: Dry, Warm Lymphatic: Yes: Within Normal Limits - Diagnostic (1) Alcohol dependence with uncomplicated withdrawal Current Visit: Yes Status: Acute (2) Cocaine dependence, uncomplicated Current Visit: Yes Status: Acute (3) Sedative, hypnotic or anxiolytic dependence with withdrawal, uncomplicated Current Visit: Yes Status: Acute (4) Human immunodeficiency virus infection Current Visit: Yes Status: Chronic Comment: on stribild (5) Weight decreased Current Visit: Yes Status: Chronic Cleared for Admission [facility] - Detox or Rehab [facility] Level of Care: Medically Managed Detox Regimen/Protocol: Valium [facility] Breath Alcohol Content Breath Alcohol Content: 0.014 Urine Drug Screen - Results Drug Screen Negative: No Urine Drug Screen Results: BRITTANIE-Cocaine, BZO-Benzodiazepines
[2017-05-08] MEDS ORDERED: P-EPHED 60MG/TRIPROLIDI 2.5MG TABLET PO PRN (17:19)
[2017-05-08] MEDS ORDERED: MAGNESIUM HYDROX 2400MG/30ML ORAL SUSPENSION 30 ML CUP PO PRN (17:19)
[2017-05-08] MEDS ORDERED: MENTHOL/PHENOL 1 EACH UD MM PRN (17:19)
[2017-05-08] MEDS ORDERED: MAG HYDROX/AL HYDROX/SIMETH 30 ML UNIT-DOSE CUP PO PRN (17:19)
[2017-05-08] MEDS ORDERED: ACETAMINOPHEN 325 MG TABLET (FP) PO PRN (17:19)
[2017-05-08] MEDS ORDERED: guaiFENesin/D-METHORPHAN HB 10 ML UNIT-DOSE CUPS PO PRN (17:19)
[2017-05-08] MEDS ORDERED: diphenhydrAMINE HCL 50 MG CAPSULE PO PRN (17:19)
[2017-05-08] MEDS ORDERED: IBUPROFEN 400 MG TABLET (FP) PO PRN (17:19)
[2017-05-08] MEDS ORDERED: MAGNESIUM CITRATE 300 ML BOTTLE PO PRN (17:19)
[2017-05-08] MEDS ORDERED: diazePAM 5 MG TABLET PO ONE (17:19)
[2017-05-08] MEDS ORDERED: NICOTINE POLACRILEX 2 MG GUM BUC PRN (17:19)
[2017-05-08] MEDS ORDERED: LOPERAMIDE HCL 2 MG CAPSULE PO PRN (17:19)
[2017-05-08] MEDS: NICOTINE 14 MG/24 HOURS TOPICAL PATCH TD SCH (19:44)
[2017-05-08] MEDS: diazePAM 5 MG TABLET PO SCH (22:33)
[2017-05-08] MEDS: THIAMINE HCL 100 MG TABLET (FP) PO SCH (22:33)
[2017-05-09] MEDS: diazePAM 5 MG TABLET PO SCH ×3 (05:31→22:25)
[2017-05-09] MEDS: PRENATAL VITAMINS W/ FOLIC ACID TABLET (FP) PO SCH (10:17)
[2017-05-09] MEDS: NICOTINE 14 MG/24 HOURS TOPICAL PATCH TD SCH (10:17)
[2017-05-09 10:29] LABS: MCH 24.3 pg (25.7-33.7); MCHC 31.9 g/dl (32.0-35.9); MEAN CELL VOLUME 76.3 fl (80-96); MEAN PLT VOLUME 8.2 fl (7.5-11.1); PLATELET COUNT 192 K/MM3 (134-434); RDW 13.9 % (11.9-15.9); WHITE BLOOD COUNT 4.9 K/mm3 (4.0-10.0)
[2017-05-09 10:36] LABS: ALK PHOS 72 U/L (45-117); ANION GAP 6 (8-16); BILIRUBIN,TOTAL 0.2 mg/dL (0.2-1.0); CALCIUM 8.3 mg/dL (8.5-10.1); CO2 30 mmol/L (21-32); CREATININE 1.2 mg/dL (0.7-1.3); GLUCOSE,RANDOM 76 mg/dL (74-106); SGOT/AST 23 U/L (15-37); SGPT/ALT 20 U/L (12-78); TOT PROT 6.3 g/dl (6.4-8.2)
--- NOTE | 2017-05-09 11:06 | PN ---
S CIWA - CIWA Score Nausea/Vomitin-No Nausea/No Vomiting Muscle Tremors: 4-Moderate,w/Arms Extend Anxiety: 4-Mod. Anxious/Guarded Agitation: 4-Moderately Restless Paroxysmal Sweats: 3 Orientation: 0-Oriented Tacttile Disturbances: 0-None Auditory Disturbances: 0-None Visual Disturbances: 0-None Headache: 0-None Present CIWA-Ar Total Score: 15 BHS Progress Note (SOAP) Subjective: sweats shakes interrupted sleep body aches Objective: 05/09/17 11:02 Vital Signs Temperature 98.6 F 05/09/17 10:00 Pulse Rate 77 05/09/17 10:00 Respiratory Rate 18 05/09/17 10:00 Blood Pressure 118/68 05/09/17 10:00 O2 Sat by Pulse Oximetry (%) Laboratory Tests 05/09/17 05/09/17 06:30 06:30 WBC 4.9 RBC 4.51 Hgb 11.0 L D Hct 34.4 L D MCV 76.3 L MCH 24.3 L MCHC 31.9 L RDW 13.9 Plt Count 192 D MPV 8.2 Sodium 142 Potassium 4.3 Chloride 106 Carbon Dioxide 30 Anion Gap 6 L BUN 12 Creatinine 1.2 Creat Clearance w eGFR > 60 Random Glucose 76 Calcium 8.3 L Total Bilirubin 0.2 D AST 23 ALT 20 Alkaline Phosphatase 72 Total Protein 6.3 L Albumin 3.0 L D labs pending awake/alert ambulating no acute distress will repeat labs Assessment: 05/09/17 11:05 withdrawal sx Plan: continue detox increase fluids labs pending
--- NOTE | 2017-05-09 11:08 | CONSULT ---
[facility] Psychiatric Consult - Data Date of interview: 05/09/17 Admission source: [facility] Identifying data: This is one of multiple re-admissions to [facility] for this 51 y/o AA male seeking detox treatment on for alcohol,xanax and cocaine dependence.Patient is ,a father of two,domiciled,unemployed and supported on welfare. Substance Abuse History: Discussed in detail in this interview.Mr Martinez maintains same version of patterns of substance abuse that he provided at [facility] : Smoking Cessation. Smoking history: Current some day smoker. Have you smoked in the past 12 months: No. Aproximately how many cigarettes per day: 20. Cigars Per Day: 0. Hx Chewing Tobacco Use: No. Initiated information on smoking cessation: Yes. 'Breaking Loose' booklet given: 05/08/17. - Substance & Tx. History. Hx Alcohol Use: Yes (VODKA/LISBETH). Hx Substance Use: Yes ( XANAX/COCAINE(HEROIN ON OCASSIONS BUT NOT A CHOICE)). Substance Use Type: Alcohol, Cocaine, Heroin (USED 2 BAGS OF HEROIN TODAY. STSTES HE IS NOT A REGULAR HEROIN USER.), Tranquilizers. Hx Substance Use Treatment: Yes. - Substances Abused. LISBETH/VODKA. Route: Oral. Frequency: Daily. Amount used: 1 QUART/2 PTS. Date of Last Use: 05/08/17. Alprazolam (Xanax) . Route: Oral. Frequency: 3-6 times per week (5X/WEEK). Amount used: 3 STIX. Age of first use: 41. Date of Last Use: 05/08/17. Cocaine. Route: Smoking (AND SNORT). Frequency: Daily. Amount used: 28 GRAM. Age of first use : 26. Date of Last Use: 05/08/17 Medical History: HIV infection since 1998 (on ART drugs).History of syncopal attcks. Psychiatric History: Patient is an unreliable historian.He continues to report that he was diagnosed with Bipolar Disorder.Denies history of psychiatric hospitalizations (questionable report).Mr Martinez informs that he still gets his OPD services at the [facility] program in [facility].Patient requests that his seroquel dose " be no more than 50 mg " at bedtime + remeron 30 mg/ day.Patient denies history of suicide attempts. Physical/Sexual Abuse/Trauma History: Patient denies. Additional Comment: Urine Drug Screen Results: BRITTANIE-Cocaine, BZO- Benzodiazepines.Noted. Mental Status Exam - Mental Status Exam Alert and Oriented to: Time, Place, Person Cognitive Function: Good Patient Appearance: Well Groomed Mood: Hopeful, Euthymic Affect: Appropriate, Normal Range Patient Behavior: Fatigued, Cooperative Speech Pattern: Clear Voice Loudness: Normal Thought Process: Goal Oriented Thought Disorder: Not Present Hallucinations: Denies Suicidal Ideation: Denies Homicidal Ideation: Denies Insight/Judgement: Poor Sleep: Poorly, Difficulty falling asleep Appetite: Good Muscle strength/Tone: Normal Gait/Station: Normal Psychiatric Findings - Problem List ([place] 1, 2,3) (1) Alcohol dependence with uncomplicated withdrawal Current Visit: Yes Status: Acute (2) Cocaine dependence, uncomplicated Current Visit: Yes Status: Acute (3) Sedative, hypnotic or anxiolytic dependence with withdrawal, uncomplicated Current Visit: Yes Status: Acute (4) Substance induced mood disorder Current Visit: Yes Status: Acute (5) Schizoaffective Disorder Current Visit: Yes Status: Chronic Comment: History. (6) Human immunodeficiency virus infection Current Visit: Yes Status: Chronic Comment: on stribild (7) Insomnia Current Visit: Yes Status: Acute Qualifiers: Insomnia type: unspecified Qualified Code(s): G47.00 - Insomnia, unspecified - Initial Treatment Plan Initial Treatment Plan: Psychoeducation.Detoxification.Medications : seroquel 50 mg po hs (patient's specific request) + remeron 15 mg po hs (intentionallly reduced for trevention of orthostasis).Side effects/benefits discussed with the patient.Recent pharmacy claims are reviewed.Noted scripts for seroquel 100 mg/ hs at [facility] on 04/25/17 and remeron 30 mg/hs on 03/30/17 at [facility].Patient agrees with this careplan.Observation.
[2017-05-09] MEDS: diazePAM 5 MG TABLET PO PRN ×2 (12:53→17:47)
--- NOTE | 2017-05-09 14:09 | EKG ---
Test Reason : Blood Pressure : / mmHG Vent. Rate : 077 BPM Atrial Rate : 077 BPM P-R Int : 116 ms QRS Dur : 086 ms QT Int : 380 ms P-R-T Axes : 067 043 030 degrees QTc Int : 430 ms NORMAL SINUS RHYTHM WITH SINUS ARRHYTHMIA POSSIBLE LEFT ATRIAL ENLARGEMENT BORDERLINE ECG WHEN COMPARED WITH ECG OF 30-MAR-2017 13:40, NO SIGNIFICANT CHANGE WAS FOUND CLINICAL CORRELATION IS RECOMMENDED Confirmed by EZEQUIEL FIELD MD ([id number]) on 05/09/2017 2:09:03 PM Referred By: Confirmed By:EZEQUIEL FIELD MD
[2017-05-09] MEDS: THIAMINE HCL 100 MG TABLET (FP) PO SCH (22:25)
[2017-05-09] MEDS: QUEtiapine FUMARATE 50 MG TABLET PO SCH (22:25)
[2017-05-09] MEDS: MIRTAZAPINE 15 MG TABLET (FP) PO SCH (22:25)
[2017-05-10] MEDS: PRENATAL VITAMINS W/ FOLIC ACID TABLET (FP) PO SCH (10:24)
[2017-05-10] MEDS: diazePAM 5 MG TABLET PO SCH ×2 (10:24→22:48)
[2017-05-10] MEDS: NICOTINE 14 MG/24 HOURS TOPICAL PATCH TD SCH (10:28)
--- NOTE | 2017-05-10 10:32 | PN ---
S CIWA - CIWA Score Nausea/Vomitin-No Nausea/No Vomiting Muscle Tremors: 3 Anxiety: 3 Agitation: 3 Paroxysmal Sweats: 3 Orientation: 0-Oriented Tacttile Disturbances: 0-None Auditory Disturbances: 0-None Visual Disturbances: 0-None Headache: 0-None Present CIWA-Ar Total Score: 12 S Progress Note (SOAP) Subjective: interrupted sleep some sweats agitation Objective: 05/10/17 10:31 Vital Signs Temperature 97.9 05/10/17 10:00 Pulse Rate 89 05/10/17 10:00 Respiratory Rate 16 05/10/17 10:00 Blood Pressure 119/71 05/10/17 10:00 O2 Sat by Pulse Oximetry (%) Laboratory Tests 05/09/17 05/09/17 05/09/17 06:30 06:30 06:30 WBC 4.9 RBC 4.51 Hgb 11.0 L D Hct 34.4 L D MCV 76.3 L MCH 24.3 L MCHC 31.9 L RDW 13.9 Plt Count 192 D MPV 8.2 Sodium 142 Potassium 4.3 Chloride 106 Carbon Dioxide 30 Anion Gap 6 L BUN 12 Creatinine 1.2 Creat Clearance w eGFR > 60 Random Glucose 76 Calcium 8.3 L Total Bilirubin 0.2 D AST 23 ALT 20 Alkaline Phosphatase 72 Total Protein 6.3 L Albumin 3.0 L D RPR Titer Nonreactive u/a pending awake/alert ambulating no acute distress Assessment: 05/10/17 10:33 withdrawal sx Plan: continue detox increase fluids u/a pending
[2017-05-10 17:13] LABS: URINE APPEARANCE CLEAR; URINE BILIRUBIN NEGATIVE (NEGATIVE); URINE BLOOD NEGATIVE (NEGATIVE); URINE COLOR YELLOW; URINE GLUCOSE (UA) NEGATIVE (NEGATIVE); URINE KETONE NEGATIVE (NEGATIVE); URINE LEUK ESTERASE NEGATIVE (NEGATIVE); URINE NITRITE NEGATIVE (NEGATIVE); URINE PROTEIN NEGATIVE (NEGATIVE); URINE UROBILINOGEN NEGATIVE mg/dL (0.2-1.0)
[2017-05-10] MEDS: QUEtiapine FUMARATE 50 MG TABLET PO SCH (22:48)
[2017-05-10] MEDS: THIAMINE HCL 100 MG TABLET (FP) PO SCH (22:48)
[2017-05-10] MEDS: MIRTAZAPINE 15 MG TABLET (FP) PO SCH (22:48)
[2017-05-11 10:13] LABS: BASOPHIL 0.3 % (0-2.0); EOSINOPHIL 5.3 % (0-4.5); MCH 24.4 pg (25.7-33.7); MCHC 31.9 g/dl (32.0-35.9); MEAN CELL VOLUME 76.6 fl (80-96); MEAN PLT VOLUME 8.3 fl (7.5-11.1); NEUTROPHILS 58.6 % (42.8-82.8); PLATELET COUNT 195 K/MM3 (134-434); RDW 14.2 % (11.9-15.9)
[2017-05-11] MEDS: PRENATAL VITAMINS W/ FOLIC ACID TABLET (FP) PO SCH (11:17)
[2017-05-11] MEDS: NICOTINE 14 MG/24 HOURS TOPICAL PATCH TD SCH (11:17)
[2017-05-11] MEDS: diazePAM 5 MG TABLET PO SCH ×2 (11:17→22:41)
--- NOTE | 2017-05-11 11:26 | PN ---
BHS Progress Note (SOAP) Subjective: feeling much better little sweats Objective: 05/11/17 11:25 Vital Signs Temperature 96.4 F L 05/11/17 09:32 Pulse Rate 86 05/11/17 09:32 Respiratory Rate 18 05/11/17 09:32 Blood Pressure 128/80 05/11/17 09:32 O2 Sat by Pulse Oximetry (%) awake/alert ambulating no acute distress Assessment: 05/11/17 11:25 withdrawal sx Plan: continue detox increase fluids d/c in am
[2017-05-11] MEDS: THIAMINE HCL 100 MG TABLET (FP) PO SCH (22:41)
[2017-05-11] MEDS: QUEtiapine FUMARATE 50 MG TABLET PO SCH (22:41)
[2017-05-11] MEDS: MIRTAZAPINE 15 MG TABLET (FP) PO SCH (22:41)
--- NOTE | 2017-05-12 08:54 | DS ---
[facility] Detox Discharge Summary Admission Date: 05/08/17 Discharge Date: 05/12/17 - History Present History: Alcohol Dependence, Cocaine Dependence, Sedative Dependence Pertinent Past History: hiv weight loss - Physical Exam Results Vital Signs: Vital Signs Temperature 98.0 F 05/12/17 06:34 Pulse Rate 101 H 05/12/17 06:34 Respiratory Rate 18 05/12/17 06:34 Blood Pressure 135/80 05/12/17 06:34 O2 Sat by Pulse Oximetry (%) Pertinent Admission Physical Exam Findings: withdrawal symptom - Treatment Hospital Course: Detox Protocol Followed, Detoxed Safely, Responded well, Discharged Condition Good, Rehab Referral Accepted Patient has Accepted a Rehab Referral to: [facility] Discharge Medications: Ambulatory Orders Elviteg/Khadra/Emtric/Tenofo Dis [Stribild Tablet] 1 tab PO DAILY #30 tablet 03/14 Mirtazapine [Remeron -] 30 mg PO HS #30 tablet 05/16/16 Multivitamin [Poly-Vitamin] 1 each PO DAILY 12/16/16 Quetiapine Fumarate [Seroquel] 100 mg PO HS #30 tablet 02/04/17 Calcium Carbonate/Vitamin D3 [Oystercal-D 500 mg-400 Unit Tb] 1 each PO DAILY # 30 mg 02/08/17 Mirtazapine [Remeron -] 30 mg PO HS #30 tablet 05/09/17 Quetiapine Fumarate [Seroquel -] 50 mg PO HS #30 tablet 05/09/17 - Diagnosis (1) Alcohol dependence with uncomplicated withdrawal Current Visit: Yes Status: Acute (2) Cocaine dependence, uncomplicated Current Visit: Yes Status: Acute (3) Sedative, hypnotic or anxiolytic dependence with withdrawal, uncomplicated Current Visit: Yes Status: Acute (4) Human immunodeficiency virus infection Current Visit: Yes Status: Chronic (5) Weight decreased Current Visit: Yes Status: Chronic (6) Schizoaffective Disorder Current Visit: Yes Status: Chronic (7) Seizure Current Visit: No Status: Chronic - AMA Did Patient Leave Against Medical Advice: No
[2017-05-12] MEDS ORDERED: diazePAM 5 MG TABLET PO SCH (10:00)
[2017-05-12 11:10] VITALS: BP 140/97; PULSE 89; TEMP 97.7
[2017-05-12] MEDS: NICOTINE 14 MG/24 HOURS TOPICAL PATCH TD SCH (11:10)
[2017-05-12] MEDS: PRENATAL VITAMINS W/ FOLIC ACID TABLET (FP) PO SCH (11:10)
== END 2017-05-12 12:00 | disposition home or self-care (01) | DRG 774 ==
LOC: YASAS 14:28 → Y6N 18:35
PROVIDERS: ADMIT Internal Medicine; ATTEND Internal Medicine
PROC: HZ2ZZZZ Detoxification Services for Substance Abuse Treatment (ICD-10-PCS; principal; 2017-05-08)
DX: F13.230 Sedative, hypnotic or anxiolytic dependence with withdrawal, uncomplicated (principal); F10.230 Alcohol dependence with withdrawal, uncomplicated; F14.20 Cocaine dependence, uncomplicated; F17.210 Nicotine dependence, cigarettes, uncomplicated; F25.9 Schizoaffective disorder, unspecified; F19.24 Other psychoactive substance dependence with psychoactive substance-induced mood disorder; Z21 Asymptomatic human immunodeficiency virus [HIV] infection status; G40.909 Epilepsy, unspecified, not intractable, without status epilepticus; G47.00 Insomnia, unspecified; Z87.898 Personal history of other specified conditions
CPT/HCPCS: 36415; 80053; 81003; 85025; 85027; 86593; 93005; 93010

== ENCOUNTER 2022-01-20 14:13 | Inpatient (IN) | payer OTHER ==
[2022-01-20] MEDS ORDERED: MAGNESIUM CITRATE 300 ML BOTTLE PO PRN (15:07)
[2022-01-20] MEDS ORDERED: ACETAMINOPHEN 325 MG TABLET (FP) PO PRN ×2 (15:07)
[2022-01-20] MEDS ORDERED: BENZOCAINE/MENTHOL (CHLORASEPTIC ) LOZENGE MM PRN (15:07)
[2022-01-20] MEDS ORDERED: BISMUTH SUBSALICYLATE 524 MG/30 ML PO PRN (15:07)
[2022-01-20] MEDS ORDERED: MAG HYDROX/AL HYDROX/SIMETH 30 ML UNIT-DOSE CUP PO PRN (15:07)
[2022-01-20] MEDS ORDERED: DICYCLOMINE HCL 10 MG CAPSULE PO PRN (15:07)
[2022-01-20] MEDS ORDERED: MAGNESIUM HYDROX 2400MG/30ML ORAL SUSPENSION 30 ML CUP PO PRN (15:07)
[2022-01-20] MEDS ORDERED: METHOCARBAMOL 500 MG TABLET PO PRN (15:07)
[2022-01-20] MEDS ORDERED: ONDANSETRON *ODT* 4 MG TABLET SL PRN (15:07)
[2022-01-20] MEDS ORDERED: LOPERAMIDE HCL 2 MG CAPSULE PO PRN (15:07)
[2022-01-20] MEDS ORDERED: IBUPROFEN 400 MG TABLET (FP) PO PRN (15:07)
[2022-01-20] MEDS ORDERED: NICOTINE 10 MG CARTRIDGE (INHALER) IH PRN (15:07)
[2022-01-20 15:43] VITALS: BMI 23.6
[2022-01-21] MEDS ORDERED: diazePAM 5 MG TABLET ONE ×2 (00:22→06:48)
[2022-01-21] MEDS ORDERED: hydrOXYzine PAMOATE 25 MG CAPSULE (FP) PO ONE ×2 (00:22→06:48)
[2022-01-21] MEDS: hydrOXYzine PAMOATE 25 MG CAPSULE (FP) PO SCH ×7 (00:30→22:11)
[2022-01-21] MEDS: diazePAM 5 MG TABLET PO SCH ×6 (00:30→22:10)
[2022-01-21 10:31] LABS: HEMATOCRIT 35.2 % (35.4-49); HEMOGLOBIN 11.4 GM/dL (11.7-16.9); MCH 25.2 pg (25.7-33.7); MCHC 32.4 g/dl (32.0-35.9); MEAN CELL VOLUME 77.8 fl (80-96); MEAN PLT VOLUME 7.4 fl (7.5-11.1); PLATELET COUNT 244 10^3/uL (134-434); RBC 4.53 M/mm3 (4.00-5.60); RDW 16.1 % (11.9-15.9)
[2022-01-21 10:35] LABS: CALCIUM 8.5 mg/dL (8.5-10.1)
[2022-01-21 10:36] LABS: ALBUMIN 2.8 g/dl (3.4-5.0); BLOOD UREA NITROGEN 12.2 mg/dL (7-18)
[2022-01-21 10:39] LABS: CREATININE 1.3 mg/dL (0.55-1.3)
[2022-01-21 10:41] LABS: BILIRUBIN,TOTAL 0.3 mg/dL (0.2-1); TOT PROT 6.4 g/dl (6.4-8.2)
[2022-01-21] MEDS: NICOTINE 21 MG/24 HOURS TOPICAL PATCH TD SCH (12:45)
[2022-01-21] MEDS: PRENATAL VITAMINS W/ FOLIC ACID TABLET (FP) PO SCH ×2 (12:45→12:55)
[2022-01-21] MEDS: MELATONIN 5 MG TABLETS PO SCH ×2 (12:46→22:12)
[2022-01-21] MEDS: THIAMINE HCL 100 MG TABLET (FP) PO SCH ×2 (12:47→22:10)
[2022-01-21] MEDS: ELVITEG/COB/EMTRI/TENOFO (STRIBILD) TABLET -NF PO SCH (13:52)
[2022-01-21] MEDS ORDERED: ALBUTEROL SO4 HFA INHALER IH ONE (17:27)
[2022-01-21] MEDS: ALBUTEROL SO4 HFA INHALER IH PRN (22:11)
[2022-01-22] MEDS: hydrOXYzine PAMOATE 25 MG CAPSULE (FP) PO SCH ×5 (05:41→23:13)
[2022-01-22] MEDS: diazePAM 5 MG TABLET PO SCH ×3 (05:41→23:10)
[2022-01-22] MEDS: ALBUTEROL SO4 HFA INHALER IH PRN ×2 (05:42→20:52)
[2022-01-22] MEDS: ELVITEG/COB/EMTRI/TENOFO (STRIBILD) TABLET -NF PO SCH (07:45)
[2022-01-22] MEDS: NICOTINE 21 MG/24 HOURS TOPICAL PATCH TD SCH (10:21)
[2022-01-22] MEDS: PRENATAL VITAMINS W/ FOLIC ACID TABLET (FP) PO SCH (10:21)
[2022-01-22] MEDS: diazePAM 5 MG TABLET PO PRN ×2 (11:48→18:00)
[2022-01-22] MEDS: MELATONIN 5 MG TABLETS PO SCH (23:09)
[2022-01-22] MEDS: THIAMINE HCL 100 MG TABLET (FP) PO SCH (23:13)
[2022-01-23] MEDS: diazePAM 5 MG TABLET PO PRN ×2 (04:24→10:48)
[2022-01-23] MEDS ORDERED: diazePAM 5 MG TABLET PO SCH (06:00)
[2022-01-23] MEDS: hydrOXYzine PAMOATE 25 MG CAPSULE (FP) PO SCH ×3 (06:28→14:53)
[2022-01-23] MEDS: ELVITEG/COB/EMTRI/TENOFO (STRIBILD) TABLET -NF PO SCH (10:30)
[2022-01-23] MEDS: PRENATAL VITAMINS W/ FOLIC ACID TABLET (FP) PO SCH (10:46)
[2022-01-23] MEDS: NICOTINE 21 MG/24 HOURS TOPICAL PATCH TD SCH (10:50)
[2022-01-23 13:56] VITALS: BP 123/69; PULSE 95; TEMP 98.1
[2022-01-23 23:11] LABS: SARS-CoV-2 NAA Not Detected (Not Detected)
[2022-01-24] MEDS ORDERED: diazePAM 5 MG TABLET PO ONE (06:00)
== END 2022-01-23 15:01 | disposition home or self-care (01) | DRG 774 ==
LOC: YASAS 14:13 → Y6N 01-21 10:08
PROVIDERS: ADMIT Allergy & Immunology; ATTEND Allergy & Immunology
PROC: HZ2ZZZZ Detoxification Services for Substance Abuse Treatment (ICD-10-PCS; principal; 2022-01-21)
DX: F10.230 Alcohol dependence with withdrawal, uncomplicated (principal); F14.20 Cocaine dependence, uncomplicated; F13.20 Sedative, hypnotic or anxiolytic dependence, uncomplicated; F16.10 Hallucinogen abuse, uncomplicated; F17.210 Nicotine dependence, cigarettes, uncomplicated; F19.24 Other psychoactive substance dependence with psychoactive substance-induced mood disorder; Z21 Asymptomatic human immunodeficiency virus [HIV] infection status; G47.00 Insomnia, unspecified; Z86.69 Personal history of other diseases of the nervous system and sense organs; Z86.59 Personal history of other mental and behavioral disorders
CPT/HCPCS: 36415; 80053; 85027; 86593; 86780; C9803-CS; U0003; U0005

== ENCOUNTER 2022-04-17 08:08 | Inpatient (IN) | payer OTHER ==
[2022-04-17 09:00] VITALS: BMI 25.8
[2022-04-17] MEDS ORDERED: METHOCARBAMOL 500 MG TABLET PO PRN (09:13)
[2022-04-17] MEDS ORDERED: ACETAMINOPHEN 325 MG TABLET (FP) PO PRN ×2 (09:13)
[2022-04-17] MEDS ORDERED: IBUPROFEN 600 MG TABLET (FP) PO PRN (09:13)
[2022-04-17] MEDS ORDERED: diazePAM 5 MG TABLET PO PRN (09:13)
[2022-04-17] MEDS ORDERED: ONDANSETRON *ODT* 4 MG TABLET SL PRN (09:13)
[2022-04-17] MEDS ORDERED: BISMUTH SUBSALICYLATE 524 MG/30 ML PO PRN (09:13)
[2022-04-17] MEDS ORDERED: DICYCLOMINE HCL 10 MG CAPSULE PO PRN (09:13)
[2022-04-17] MEDS ORDERED: MAG HYDROX/AL HYDROX/SIMETH 30 ML UNIT-DOSE CUP PO PRN (09:13)
[2022-04-17] MEDS ORDERED: MAGNESIUM HYDROX 2400MG/30ML ORAL SUSPENSION 30 ML CUP PO PRN (09:13)
[2022-04-17] MEDS ORDERED: NICOTINE 10 MG CARTRIDGE (INHALER) IH PRN (09:13)
[2022-04-17] MEDS ORDERED: BENZOCAINE/MENTHOL (CHLORASEPTIC ) LOZENGE MM PRN (09:13)
[2022-04-17] MEDS ORDERED: MAGNESIUM CITRATE 300 ML BOTTLE PO PRN (09:13)
[2022-04-17] MEDS ORDERED: LOPERAMIDE HCL 2 MG CAPSULE PO PRN (09:13)
[2022-04-17] MEDS ORDERED: IBUPROFEN 400 MG TABLET (FP) PO PRN (09:13)
[2022-04-17] MEDS: hydrOXYzine PAMOATE 25 MG CAPSULE (FP) PO SCH ×4 (10:00→22:42)
[2022-04-17] MEDS: diazePAM 5 MG TABLET PO SCH ×3 (12:04→22:42)
[2022-04-17] MEDS: PRENATAL VITAMINS W/ FOLIC ACID TABLET (FP) PO SCH (12:04)
[2022-04-17] MEDS ORDERED: THIAMINE HCL 100 MG TABLET (FP) PO SCH (22:00)
[2022-04-17] MEDS ORDERED: MELATONIN 5 MG TABLETS PO SCH (22:00)
[2022-04-18] MEDS: diazePAM 5 MG TABLET PO SCH ×2 (06:05→10:34)
[2022-04-18] MEDS: hydrOXYzine PAMOATE 25 MG CAPSULE (FP) PO SCH ×2 (06:05→10:34)
[2022-04-18 08:50] VITALS: BP 138/83; PULSE 70; TEMP 97.8
[2022-04-18] MEDS: PRENATAL VITAMINS W/ FOLIC ACID TABLET (FP) PO SCH (10:34)
[2022-04-18] MEDS ORDERED: ALBUTEROL SO4 HFA INHALER IH PRN (11:01)
[2022-04-18 11:50] LABS: HEMATOCRIT 39.4 % (35.4-49); HEMOGLOBIN 12.7 GM/dL (11.7-16.9); MCH 24.9 pg (25.7-33.7); MCHC 32.1 g/dl (32.0-35.9); MEAN CELL VOLUME 77.4 fl (80-96); MEAN PLT VOLUME 7.8 fl (7.5-11.1); PLATELET COUNT 245 10^3/uL (134-434); RDW 16.5 % (11.9-15.9); WHITE BLOOD COUNT 5.1 K/mm3 (4.0-10.0)
[2022-04-18 12:24] LABS: ALBUMIN 3.3 g/dl (3.4-5.0); CALCIUM 8.7 mg/dL (8.5-10.1)
[2022-04-18 12:29] LABS: TOT PROT 6.6 g/dl (6.4-8.2)
[2022-04-18] MEDS ORDERED: LORazepam 1 MG TABLET PO PRN (13:01)
[2022-04-18] MEDS ORDERED: LORazepam 2 MG TABLET PO SCH (17:00)
[2022-04-19] MEDS ORDERED: diazePAM 5 MG TABLET PO SCH (06:00)
[2022-04-20] MEDS ORDERED: LORazepam 1 MG TABLET PO SCH (05:00)
[2022-04-20] MEDS ORDERED: diazePAM 5 MG TABLET PO SCH (06:00)
[2022-04-21] MEDS ORDERED: LORazepam 0.5 MG TABLET PO PRN
[2022-04-21] MEDS ORDERED: LORazepam 0.5 MG TABLET PO SCH (05:00)
[2022-04-21] MEDS ORDERED: diazePAM 5 MG TABLET PO ONE (06:00)
[2022-04-22] MEDS ORDERED: LORazepam 0.5 MG TABLET PO ONE (05:00)
== END 2022-04-18 11:39 | disposition left against medical advice (07) | DRG 770 ==
LOC: YASAS 08:08 → Y3N 10:19
PROVIDERS: ADMIT Allergy & Immunology; ATTEND Surgery
PROC: HZ2ZZZZ Detoxification Services for Substance Abuse Treatment (ICD-10-PCS; principal; 2022-04-17)
DX: F10.230 Alcohol dependence with withdrawal, uncomplicated (principal); F14.20 Cocaine dependence, uncomplicated; F12.20 Cannabis dependence, uncomplicated; F17.210 Nicotine dependence, cigarettes, uncomplicated; F25.9 Schizoaffective disorder, unspecified; F31.9 Bipolar disorder, unspecified; F41.8 Other specified anxiety disorders; Z21 Asymptomatic human immunodeficiency virus [HIV] infection status
CPT/HCPCS: 36415; 80053; 85027; 86593; 86780; C9803-CS; U0003; U0005

== ENCOUNTER 2022-10-15 08:41 | Inpatient (IN) | payer OTHER ==
[2022-10-15 10:14] VITALS: BMI 25.8
[2022-10-15] MEDS ORDERED: BENZOCAINE/MENTHOL (CHLORASEPTIC ) LOZENGE MM PRN (11:19)
[2022-10-15] MEDS ORDERED: LORazepam 1 MG TABLET PO PRN (11:19)
[2022-10-15] MEDS ORDERED: LOPERAMIDE HCL 2 MG CAPSULE PO PRN (11:19)
[2022-10-15] MEDS ORDERED: NALOXONE HCL (KLOXXADO) 8 MG SPRAY NS PRN (11:19)
[2022-10-15] MEDS ORDERED: IBUPROFEN 400 MG TABLET (FP) PO PRN (11:19)
[2022-10-15] MEDS ORDERED: NICOTINE 10 MG CARTRIDGE (INHALER) IH PRN (11:19)
[2022-10-15] MEDS ORDERED: ONDANSETRON *ODT* 4 MG TABLET SL PRN (11:19)
[2022-10-15] MEDS ORDERED: LORazepam 2 MG TABLET PO ONE (11:19)
[2022-10-15] MEDS ORDERED: DICYCLOMINE HCL 10 MG CAPSULE PO PRN (11:19)
[2022-10-15] MEDS ORDERED: hydrOXYzine PAMOATE 25 MG CAPSULE (FP) PO PRN (11:19)
[2022-10-15] MEDS ORDERED: ACETAMINOPHEN 325 MG TABLET (FP) PO PRN ×2 (11:19)
[2022-10-15] MEDS ORDERED: IBUPROFEN 600 MG TABLET (FP) PO PRN (11:19)
[2022-10-15] MEDS ORDERED: BISMUTH SUBSALICYLATE 524 MG/30 ML PO PRN (11:19)
[2022-10-15] MEDS ORDERED: METHOCARBAMOL 500 MG TABLET PO PRN (11:19)
[2022-10-15] MEDS ORDERED: MAG HYDROX/AL HYDROX/SIMETH 30 ML UNIT-DOSE CUP PO PRN (11:19)
[2022-10-15] MEDS ORDERED: MAGNESIUM HYDROX 2400MG/30ML ORAL SUSPENSION 30 ML CUP PO PRN (11:19)
[2022-10-15] MEDS ORDERED: POLYETHYLENE GLYCOL (HEALTHYLAX) 3350 17 GM PACKET PO PRN (11:19)
[2022-10-15] MEDS: LIDOCAINE 5% TOPICAL PATCH TP SCH (14:15)
[2022-10-15] MEDS: ALBUTEROL SO4 HFA INHALER IH PRN ×2 (17:23→23:02)
[2022-10-15] MEDS: LORazepam 2 MG TABLET PO SCH ×2 (18:59→23:04)
[2022-10-15] MEDS: MELATONIN 5 MG TABLETS PO SCH (23:02)
[2022-10-15] MEDS: LIDOCAINE PATCH REMOVAL MC SCH (23:02)
[2022-10-15] MEDS: THIAMINE HCL 100 MG TABLET (FP) PO SCH (23:03)
[2022-10-16] MEDS: LORazepam 2 MG TABLET PO SCH ×4 (06:51→22:16)
[2022-10-16] MEDS: LIDOCAINE 5% TOPICAL PATCH TP SCH (10:55)
[2022-10-16] MEDS: PRENATAL VITAMINS W/ FOLIC ACID TABLET (FP) PO SCH (10:56)
[2022-10-16 11:05] LABS: HEMATOCRIT 36.2 % (35.4-49); HEMOGLOBIN 11.5 GM/dL (11.7-16.9); MCH 24.4 pg (25.7-33.7); MCHC 31.6 g/dl (32.0-35.9); MEAN CELL VOLUME 77.1 fl (80-96); MEAN PLT VOLUME 6.9 fl (7.5-11.1); PLATELET COUNT 338 10^3/uL (134-434); RDW 15.6 % (11.9-15.9)
[2022-10-16 11:12] LABS: ALBUMIN 3.2 g/dl (3.4-5.0); BLOOD UREA NITROGEN 13.9 mg/dL (7-18)
[2022-10-16 11:15] LABS: CREATININE 1.1 mg/dL (0.55-1.3)
[2022-10-16 11:17] LABS: BILIRUBIN,TOTAL 0.4 mg/dL (0.2-1); TOT PROT 6.4 g/dl (6.4-8.2)
[2022-10-16] MEDS: LIDOCAINE PATCH REMOVAL MC SCH (22:15)
[2022-10-16] MEDS: MELATONIN 5 MG TABLETS PO SCH (22:15)
[2022-10-16] MEDS: THIAMINE HCL 100 MG TABLET (FP) PO SCH (22:15)
[2022-10-17] MEDS: LORazepam 1 MG TABLET PO SCH ×2 (07:02→10:46)
[2022-10-17] MEDS: LIDOCAINE 5% TOPICAL PATCH TP SCH (10:46)
[2022-10-17] MEDS: PRENATAL VITAMINS W/ FOLIC ACID TABLET (FP) PO SCH (10:46)
[2022-10-17 11:00] VITALS: BP 114/74; PULSE 87; RESP 16; TEMP 98.7
[2022-10-17] MEDS ORDERED: ELVITEG/COB/EMTRI/TENOF (GENVOYA) TABLET (NF) PO SCH (11:15)
[2022-10-17] MEDS ORDERED: DOCUSATE SODIUM 100 MG CAPSULE (FP) PO SCH (11:45)
[2022-10-17] MEDS ORDERED: BUDESONIDE/FORMETEROL FUMARATE 80/4.5 mcg INHALER IH SCH (11:45)
[2022-10-17] MEDS ORDERED: GABAPENTIN 300 MG CAPSULE PO SCH (11:45)
[2022-10-18] MEDS ORDERED: LORazepam 0.5 MG TABLET PO PRN
[2022-10-18] MEDS ORDERED: LORazepam 0.5 MG TABLET PO SCH (05:00)
[2022-10-18] MEDS ORDERED: SULFAMETHOXAZOLE/TRIMETHOPRIM 800MG/160MG D.S. TABLET PO SCH (10:00)
[2022-10-19] MEDS ORDERED: LORazepam 0.5 MG TABLET PO ONE (05:00)
[2022-10-24] MEDS ORDERED: ERGOCALCIFEROL (VIT D2) 50,000 UNIT (1.25 MG) CAPSULE PO SCH (10:00)
== END 2022-10-17 13:24 | disposition left against medical advice (07) | DRG 770 ==
LOC: YASAS 08:41 → Y3N 11:36
PROVIDERS: ADMIT Allergy & Immunology; ATTEND Surgery
PROC: HZ2ZZZZ Detoxification Services for Substance Abuse Treatment (ICD-10-PCS; principal; 2022-10-15)
DX: F10.230 Alcohol dependence with withdrawal, uncomplicated (principal); F14.20 Cocaine dependence, uncomplicated; F17.210 Nicotine dependence, cigarettes, uncomplicated; F20.9 Schizophrenia, unspecified; F31.9 Bipolar disorder, unspecified; F41.8 Other specified anxiety disorders; Z21 Asymptomatic human immunodeficiency virus [HIV] infection status; M54.50 Low back pain, unspecified; G89.29 Other chronic pain; Z86.19 Personal history of other infectious and parasitic diseases; Z56.0 Unemployment, unspecified
CPT/HCPCS: 36415; 80053; 85027; 86593; 86780; C9803-CS; U0003; U0005

== ENCOUNTER 2022-11-04 14:24 | Inpatient (IN) | payer OTHER ==
[2022-11-04 17:37] VITALS: BMI 22.7
[2022-11-04] MEDS ORDERED: LOPERAMIDE HCL 2 MG CAPSULE PO PRN (17:55)
[2022-11-04] MEDS ORDERED: IBUPROFEN 600 MG TABLET (FP) PO PRN (17:55)
[2022-11-04] MEDS ORDERED: P-EPHED 60MG/TRIPROLIDI 2.5MG TABLET PO PRN (17:55)
[2022-11-04] MEDS ORDERED: MAGNESIUM HYDROX 2400MG/30ML ORAL SUSPENSION 30 ML CUP PO PRN (17:55)
[2022-11-04] MEDS ORDERED: ACETAMINOPHEN 325 MG TABLET (FP) PO PRN ×2 (17:55)
[2022-11-04] MEDS ORDERED: guaiFENesin 200 MG/10 ML 10 ML UNIT-DOSE CUPS PO PRN (17:55)
[2022-11-04] MEDS ORDERED: MELATONIN 5 MG TABLETS PO PRN (17:55)
[2022-11-04] MEDS ORDERED: MAG HYDROX/AL HYDROX/SIMETH 30 ML UNIT-DOSE CUP PO PRN (17:55)
[2022-11-04] MEDS ORDERED: IBUPROFEN 400 MG TABLET (FP) PO PRN (17:55)
[2022-11-04] MEDS ORDERED: BENZOCAINE/MENTHOL (CHLORASEPTIC ) LOZENGE MM PRN (17:55)
[2022-11-04] MEDS ORDERED: DICYCLOMINE HCL 10 MG CAPSULE PO PRN (17:55)
[2022-11-04] MEDS ORDERED: BISMUTH SUBSALICYLATE 524 MG/30 ML PO PRN (17:55)
[2022-11-04] MEDS ORDERED: POLYETHYLENE GLYCOL (HEALTHYLAX) 3350 17 GM PACKET PO PRN (17:55)
[2022-11-04] MEDS ORDERED: ONDANSETRON *ODT* 4 MG TABLET SL PRN (17:55)
[2022-11-04] MEDS ORDERED: ALBUTEROL SO4 0.083% IH SOL 2.5 MG/3 ML VIAL.NEB. NEB PRN (17:56)
[2022-11-04] MEDS ORDERED: ALBUTEROL SO4 HFA INHALER IH PRN (18:30)
[2022-11-04] MEDS: BUDESONIDE/FORMETEROL FUMARATE 80/4.5 mcg INHALER IH SCH (22:43)
[2022-11-04] MEDS: THIAMINE HCL 100 MG TABLET (FP) PO SCH (22:43)
[2022-11-04] MEDS: METHOCARBAMOL 500 MG TABLET PO PRN (22:43)
[2022-11-04] MEDS: hydrOXYzine PAMOATE 25 MG CAPSULE (FP) PO PRN (22:43)
[2022-11-05] MEDS: BUDESONIDE/FORMETEROL FUMARATE 80/4.5 mcg INHALER IH SCH ×2 (10:04→22:45)
[2022-11-05] MEDS: hydrOXYzine PAMOATE 25 MG CAPSULE (FP) PO PRN (10:05)
[2022-11-05] MEDS: METHOCARBAMOL 500 MG TABLET PO PRN (10:05)
[2022-11-05] MEDS: PRENATAL VITAMINS W/ FOLIC ACID TABLET (FP) PO SCH (10:07)
[2022-11-05] MEDS: diazePAM 5 MG TABLET PO SCH ×3 (11:18→22:45)
[2022-11-05] MEDS: THIAMINE HCL 100 MG TABLET (FP) PO SCH (22:46)
[2022-11-06] MEDS: diazePAM 5 MG TABLET PO SCH ×4 (05:15→22:19)
[2022-11-06] MEDS: PRENATAL VITAMINS W/ FOLIC ACID TABLET (FP) PO SCH (10:13)
[2022-11-06] MEDS: BUDESONIDE/FORMETEROL FUMARATE 80/4.5 mcg INHALER IH SCH ×2 (10:13→22:23)
[2022-11-06] MEDS: THIAMINE HCL 100 MG TABLET (FP) PO SCH (22:20)
[2022-11-06] MEDS: hydrOXYzine PAMOATE 25 MG CAPSULE (FP) PO PRN (22:22)
[2022-11-06] MEDS: QUEtiapine FUMARATE 100 MG TABLET (FP) PO SCH (22:55)
[2022-11-07] MEDS: diazePAM 5 MG TABLET PO SCH ×2 (05:14→14:12)
[2022-11-07] MEDS: hydrOXYzine PAMOATE 25 MG CAPSULE (FP) PO PRN (09:42)
[2022-11-07] MEDS: METHOCARBAMOL 500 MG TABLET PO PRN (09:42)
[2022-11-07] MEDS: PRENATAL VITAMINS W/ FOLIC ACID TABLET (FP) PO SCH (09:42)
[2022-11-07] MEDS: diazePAM 5 MG TABLET PO PRN ×2 (09:43→22:18)
[2022-11-07] MEDS: BUDESONIDE/FORMETEROL FUMARATE 80/4.5 mcg INHALER IH SCH ×2 (09:44→22:30)
[2022-11-07] MEDS: THIAMINE HCL 100 MG TABLET (FP) PO SCH (22:17)
[2022-11-07] MEDS: QUEtiapine FUMARATE 100 MG TABLET (FP) PO SCH (22:17)
[2022-11-08] MEDS ORDERED: diazePAM 5 MG TABLET PO SCH (06:00)
[2022-11-08] MEDS ORDERED: diazePAM 5 MG TABLET PO ONE (06:00)
[2022-11-08 09:34] VITALS: BP 102/59; PULSE 79; RESP 18; TEMP 98.4
[2022-11-08] MEDS: PRENATAL VITAMINS W/ FOLIC ACID TABLET (FP) PO SCH (09:42)
[2022-11-08] MEDS: BUDESONIDE/FORMETEROL FUMARATE 80/4.5 mcg INHALER IH SCH (09:42)
[2022-11-09] MEDS ORDERED: diazePAM 5 MG TABLET PO ONE (06:00)
== END 2022-11-08 11:15 | disposition home or self-care (01) | DRG 774 ==
LOC: YASAS 14:24 → UNDOADMIN 18:37 → Y6N 18:37
PROVIDERS: ADMIT Allergy & Immunology; ATTEND Family Medicine
PROC: HZ2ZZZZ Detoxification Services for Substance Abuse Treatment (ICD-10-PCS; principal; 2022-11-04)
DX: F10.230 Alcohol dependence with withdrawal, uncomplicated (principal); F14.20 Cocaine dependence, uncomplicated; F17.210 Nicotine dependence, cigarettes, uncomplicated; F19.24 Other psychoactive substance dependence with psychoactive substance-induced mood disorder; F31.9 Bipolar disorder, unspecified; F25.9 Schizoaffective disorder, unspecified; B20 Human immunodeficiency virus [HIV] disease; Z79.899 Other long term (current) drug therapy; M54.50 Low back pain, unspecified; G89.29 Other chronic pain; Z86.19 Personal history of other infectious and parasitic diseases; Z56.0 Unemployment, unspecified; Z59.00 Homelessness unspecified
CPT/HCPCS: 87811; 94640; C9803-CS; U0003; U0005

== ENCOUNTER 2022-12-02 10:33 | Inpatient (IN) | payer OTHER ==
[2022-12-02 11:06] VITALS: BMI 22.8
[2022-12-02] MEDS ORDERED: BENZOCAINE/MENTHOL (CHLORASEPTIC ) LOZENGE MM PRN (14:09)
[2022-12-02] MEDS ORDERED: NALOXONE HCL (KLOXXADO) 8 MG SPRAY NS PRN (14:09)
[2022-12-02] MEDS ORDERED: MAGNESIUM HYDROX 2400MG/30ML ORAL SUSPENSION 30 ML CUP PO PRN (14:09)
[2022-12-02] MEDS ORDERED: LOPERAMIDE HCL 2 MG CAPSULE PO PRN (14:09)
[2022-12-02] MEDS ORDERED: NALOXONE HCL 0.4 MG/ML VIAL IM PRN (14:09)
[2022-12-02] MEDS ORDERED: MAG HYDROX/AL HYDROX/SIMETH 30 ML UNIT-DOSE CUP PO PRN (14:09)
[2022-12-02] MEDS ORDERED: POLYETHYLENE GLYCOL (HEALTHYLAX) 3350 17 GM PACKET PO PRN (14:09)
[2022-12-02] MEDS ORDERED: ONDANSETRON *ODT* 4 MG TABLET SL PRN (14:09)
[2022-12-02] MEDS ORDERED: BISMUTH SUBSALICYLATE 262 MG/15 ML BTL PO PRN (14:09)
[2022-12-02] MEDS ORDERED: IBUPROFEN 400 MG TABLET (FP) PO PRN (14:09)
[2022-12-02] MEDS ORDERED: DICYCLOMINE HCL 10 MG CAPSULE PO PRN (14:09)
[2022-12-02] MEDS ORDERED: ACETAMINOPHEN 325 MG TABLET (FP) PO PRN ×2 (14:09)
[2022-12-02] MEDS: THIAMINE HCL 100 MG TABLET (FP) PO SCH (22:53)
[2022-12-02] MEDS: hydrOXYzine PAMOATE 25 MG CAPSULE (FP) PO PRN (22:53)
[2022-12-02] MEDS: MELATONIN 5 MG TABLETS PO SCH (22:56)
[2022-12-03] MEDS: IBUPROFEN 600 MG TABLET (FP) PO PRN ×2 (05:28→20:43)
[2022-12-03] MEDS: NICOTINE 21 MG/24 HOURS TOPICAL PATCH TD SCH (10:59)
[2022-12-03] MEDS: PRENATAL VITAMINS W/ FOLIC ACID TABLET (FP) PO SCH (10:59)
[2022-12-03 11:22] LABS: HEMATOCRIT 37.6 % (35.4-49); MCH 24.9 pg (25.7-33.7); MCHC 31.8 g/dl (32.0-35.9); MEAN CELL VOLUME 78.1 fl (80-96); MEAN PLT VOLUME 7.7 fl (7.5-11.1); PLATELET COUNT 292 10^3/uL (134-434); RBC 4.82 M/mm3 (4.00-5.60); RDW 15.2 % (11.9-15.9); WHITE BLOOD COUNT 8.8 K/mm3 (4.0-10.0)
[2022-12-03 11:45] LABS: URINE APPEARANCE CLEAR; URINE BILIRUBIN NEGATIVE (NEGATIVE); URINE COLOR DK YELLOW; URINE GLUCOSE (UA) NEGATIVE (NEGATIVE); URINE KETONE NEGATIVE (NEGATIVE); URINE LEUK ESTERASE NEGATIVE (NEGATIVE); URINE NITRITE NEGATIVE (NEGATIVE); URINE PROTEIN NEGATIVE (NEGATIVE)
[2022-12-03 11:51] LABS: ALBUMIN 3.4 g/dl (3.4-5.0); BLOOD UREA NITROGEN 12.8 mg/dL (7-18)
[2022-12-03 11:52] LABS: CALCIUM 8.9 mg/dL (8.5-10.1)
[2022-12-03 11:54] LABS: CREATININE 0.9 mg/dL (0.55-1.3)
[2022-12-03 11:55] LABS: BILIRUBIN,TOTAL 1.4 mg/dL (0.2-1)
[2022-12-03 11:56] LABS: TOT PROT 6.9 g/dl (6.4-8.2)
[2022-12-03] MEDS: diazePAM 5 MG TABLET PO PRN (13:43)
[2022-12-03] MEDS: LACTULOSE 20 GM/30 ML UDC (FOR ORAL USE ONLY) PO SCH ×2 (13:43→22:39)
[2022-12-03] MEDS: diazePAM 5 MG TABLET PO SCH ×2 (17:23→22:40)
[2022-12-03] MEDS: hydrOXYzine PAMOATE 25 MG CAPSULE (FP) PO PRN (17:23)
[2022-12-03] MEDS: THIAMINE HCL 100 MG TABLET (FP) PO SCH (22:39)
[2022-12-03] MEDS: QUEtiapine FUMARATE 50 MG TABLET PO SCH (22:40)
[2022-12-04] MEDS: diazePAM 5 MG TABLET PO SCH ×4 (05:43→22:25)
[2022-12-04] MEDS: LACTULOSE 20 GM/30 ML UDC (FOR ORAL USE ONLY) PO SCH ×3 (06:03→22:26)
[2022-12-04] MEDS ORDERED: ALBUTEROL SO4 HFA INHALER IH PRN (09:37)
[2022-12-04] MEDS: PRENATAL VITAMINS W/ FOLIC ACID TABLET (FP) PO SCH (10:35)
[2022-12-04] MEDS: NICOTINE 21 MG/24 HOURS TOPICAL PATCH TD SCH (10:36)
[2022-12-04] MEDS: BUDESONIDE/FORMETEROL FUMARATE 80/4.5 mcg INHALER IH SCH ×2 (10:37→22:27)
[2022-12-04] MEDS: IBUPROFEN 600 MG TABLET (FP) PO PRN (17:16)
[2022-12-04] MEDS: THIAMINE HCL 100 MG TABLET (FP) PO SCH (22:24)
[2022-12-04] MEDS ORDERED: QUEtiapine FUMARATE 25 MG TABLET ONE (22:25)
[2022-12-04] MEDS: QUEtiapine FUMARATE 50 MG TABLET PO SCH (22:26)
[2022-12-05] MEDS: LACTULOSE 20 GM/30 ML UDC (FOR ORAL USE ONLY) PO SCH ×3 (05:50→22:18)
[2022-12-05] MEDS: diazePAM 5 MG TABLET PO SCH ×3 (05:56→22:17)
[2022-12-05] MEDS: NICOTINE 21 MG/24 HOURS TOPICAL PATCH TD SCH (10:12)
[2022-12-05] MEDS: PRENATAL VITAMINS W/ FOLIC ACID TABLET (FP) PO SCH (10:12)
[2022-12-05] MEDS: diazePAM 5 MG TABLET PO PRN ×2 (10:12→17:25)
[2022-12-05] MEDS: BUDESONIDE/FORMETEROL FUMARATE 80/4.5 mcg INHALER IH SCH ×2 (10:12→22:18)
[2022-12-05] MEDS: THIAMINE HCL 100 MG TABLET (FP) PO SCH (22:17)
[2022-12-05] MEDS: QUEtiapine FUMARATE 50 MG TABLET PO SCH (22:18)
[2022-12-06] MEDS: diazePAM 5 MG TABLET PO SCH ×2 (05:57→17:14)
[2022-12-06] MEDS: LACTULOSE 20 GM/30 ML UDC (FOR ORAL USE ONLY) PO SCH ×3 (05:58→22:39)
[2022-12-06] MEDS: NICOTINE 21 MG/24 HOURS TOPICAL PATCH TD SCH (10:14)
[2022-12-06] MEDS: BUDESONIDE/FORMETEROL FUMARATE 80/4.5 mcg INHALER IH SCH ×2 (10:15→22:39)
[2022-12-06] MEDS: PRENATAL VITAMINS W/ FOLIC ACID TABLET (FP) PO SCH (10:15)
[2022-12-06] MEDS: diazePAM 5 MG TABLET PO PRN (10:17)
[2022-12-06] MEDS: hydrOXYzine PAMOATE 25 MG CAPSULE (FP) PO PRN (17:15)
[2022-12-06] MEDS: MELATONIN 5 MG TABLETS PO SCH (22:39)
[2022-12-06] MEDS: THIAMINE HCL 100 MG TABLET (FP) PO SCH (22:39)
[2022-12-06] MEDS: QUEtiapine FUMARATE 50 MG TABLET PO SCH (22:39)
[2022-12-07] MEDS ORDERED: diazePAM 5 MG TABLET PO ONE (06:00)
[2022-12-07] MEDS: LACTULOSE 20 GM/30 ML UDC (FOR ORAL USE ONLY) PO SCH (06:23)
[2022-12-07] MEDS: NICOTINE 21 MG/24 HOURS TOPICAL PATCH TD SCH (10:29)
[2022-12-07] MEDS: BUDESONIDE/FORMETEROL FUMARATE 80/4.5 mcg INHALER IH SCH (10:30)
[2022-12-07] MEDS: PRENATAL VITAMINS W/ FOLIC ACID TABLET (FP) PO SCH (10:30)
[2022-12-07 11:13] VITALS: BP 131/72; PULSE 91; RESP 17; TEMP 97.5
== END 2022-12-07 12:19 | disposition home or self-care (01) | DRG 774 ==
LOC: YASAS 10:33 → UNDOADMIN 16:48 → Y6N 16:48 → UNDODISIN 12-07 12:19
PROVIDERS: ADMIT Allergy & Immunology; ATTEND Surgery
PROC: HZ2ZZZZ Detoxification Services for Substance Abuse Treatment (ICD-10-PCS; principal; 2022-12-02)
DX: F10.230 Alcohol dependence with withdrawal, uncomplicated (principal); F14.20 Cocaine dependence, uncomplicated; F17.210 Nicotine dependence, cigarettes, uncomplicated; F25.9 Schizoaffective disorder, unspecified; F31.9 Bipolar disorder, unspecified; F19.24 Other psychoactive substance dependence with psychoactive substance-induced mood disorder; Z21 Asymptomatic human immunodeficiency virus [HIV] infection status; M54.50 Low back pain, unspecified; G89.29 Other chronic pain; R79.89 Other specified abnormal findings of blood chemistry; Z86.19 Personal history of other infectious and parasitic diseases
CPT/HCPCS: 36415; 80053; 81003; 82140; 85027; 86593; 86780; 87811; 93005; 93010; C9803-CS; U0003; U0005

== ENCOUNTER 2023-02-15 06:19 | Inpatient (IN) | payer OTHER ==
[2023-02-15 06:50] VITALS: BMI 23.8
[2023-02-15] MEDS ORDERED: DICYCLOMINE HCL 10 MG CAPSULE PO PRN (08:05)
[2023-02-15] MEDS ORDERED: NALOXONE HCL 0.4 MG/ML VIAL IM PRN (08:05)
[2023-02-15] MEDS ORDERED: BENZOCAINE/MENTHOL (CHLORASEPTIC ) LOZENGE MM PRN (08:05)
[2023-02-15] MEDS ORDERED: IBUPROFEN 400 MG TABLET (FP) PO PRN (08:05)
[2023-02-15] MEDS ORDERED: MAGNESIUM HYDROX 2400MG/30ML ORAL SUSPENSION 30 ML CUP PO PRN (08:05)
[2023-02-15] MEDS ORDERED: LORazepam 1 MG TABLET PO PRN (08:05)
[2023-02-15] MEDS ORDERED: POLYETHYLENE GLYCOL (HEALTHYLAX) 3350 17 GM PACKET PO PRN (08:05)
[2023-02-15] MEDS ORDERED: LOPERAMIDE HCL 2 MG CAPSULE PO PRN (08:05)
[2023-02-15] MEDS ORDERED: ACETAMINOPHEN 325 MG TABLET (FP) PO PRN (08:05)
[2023-02-15] MEDS ORDERED: NICOTINE 10 MG CARTRIDGE (INHALER) IH PRN (08:05)
[2023-02-15] MEDS ORDERED: hydrOXYzine PAMOATE 25 MG CAPSULE (FP) PO PRN (08:05)
[2023-02-15] MEDS ORDERED: ONDANSETRON *ODT* 4 MG TABLET SL PRN (08:05)
[2023-02-15] MEDS ORDERED: guaiFENesin 600 MG TABLET.ER (FP) PO PRN (08:05)
[2023-02-15] MEDS ORDERED: NALOXONE HCL (KLOXXADO) 8 MG SPRAY NS PRN (08:05)
[2023-02-15] MEDS ORDERED: BENZONATATE 200 MG CAPSULE PO PRN (08:05)
[2023-02-15] MEDS ORDERED: METHOCARBAMOL 500 MG TABLET PO PRN (08:05)
[2023-02-15] MEDS ORDERED: BISMUTH SUBSALICYLATE 262 MG/15 ML BTL PO PRN (08:05)
[2023-02-15] MEDS ORDERED: MAG HYDROX/AL HYDROX/SIMETH 30 ML UNIT-DOSE CUP PO PRN (08:05)
[2023-02-15] MEDS ORDERED: IBUPROFEN 600 MG TABLET (FP) PO PRN (08:05)
[2023-02-15] MEDS ORDERED: ALBUTEROL SO4 HFA INHALER IH PRN (08:11)
[2023-02-15] MEDS: LORazepam 2 MG TABLET PO SCH ×3 (10:31→22:44)
[2023-02-15] MEDS: PRENATAL VITAMINS W/ FOLIC ACID TABLET (FP) PO SCH (10:31)
[2023-02-15] MEDS: BUDESONIDE/FORMETEROL FUMARATE 80/4.5 mcg INHALER IH SCH ×2 (10:32→22:45)
[2023-02-15] MEDS: NICOTINE 14 MG/24 HOURS TOPICAL PATCH TD SCH (10:33)
[2023-02-15 17:26] LABS: HEMATOCRIT 38.2 % (35.4-49); HEMOGLOBIN 12.7 GM/dL (11.7-16.9); MCH 24.7 pg (25.7-33.7); MCHC 33.1 g/dl (32.0-35.9); MEAN CELL VOLUME 74.7 fl (80-96); MEAN PLT VOLUME 7.8 fl (7.5-11.1); PLATELET COUNT 298 10^3/uL (134-434); RBC 5.12 M/mm3 (4.00-5.60); RDW 14.6 % (11.9-15.9); WHITE BLOOD COUNT 6.1 K/mm3 (4.0-10.0)
[2023-02-15 17:27] LABS: POTASSIUM 4.1 mmol/L (3.5-5.1)
[2023-02-15 17:29] LABS: CALCIUM 9.3 mg/dL (8.5-10.1)
[2023-02-15 17:30] LABS: ALBUMIN 3.6 g/dl (3.4-5.0); BLOOD UREA NITROGEN 15.4 mg/dL (7-18)
[2023-02-15 17:33] LABS: CREATININE 1.1 mg/dL (0.55-1.3)
[2023-02-15 17:34] LABS: TOT PROT 7.3 g/dl (6.4-8.2)
[2023-02-15 17:35] LABS: BILIRUBIN,TOTAL 0.5 mg/dL (0.2-1)
[2023-02-15] MEDS: MELATONIN 5 MG TABLETS PO SCH (22:43)
[2023-02-15] MEDS: THIAMINE HCL 100 MG TABLET (FP) PO SCH (22:43)
[2023-02-16] MEDS: LORazepam 2 MG TABLET PO SCH ×4 (05:55→22:19)
[2023-02-16] MEDS: PRENATAL VITAMINS W/ FOLIC ACID TABLET (FP) PO SCH (10:24)
[2023-02-16] MEDS: NICOTINE 14 MG/24 HOURS TOPICAL PATCH TD SCH (10:24)
[2023-02-16] MEDS: LACTULOSE 20 GM/30 ML UDC (FOR ORAL USE ONLY) PO SCH ×4 (10:24→22:19)
[2023-02-16] MEDS: BUDESONIDE/FORMETEROL FUMARATE 80/4.5 mcg INHALER IH SCH ×2 (10:26→22:20)
[2023-02-16 17:00] VITALS: RESP 18
[2023-02-16] MEDS: THIAMINE HCL 100 MG TABLET (FP) PO SCH (22:19)
[2023-02-16] MEDS: MELATONIN 5 MG TABLETS PO SCH (22:19)
[2023-02-17] MEDS: LORazepam 1 MG TABLET PO SCH ×2 (05:54→10:07)
[2023-02-17] MEDS: LACTULOSE 20 GM/30 ML UDC (FOR ORAL USE ONLY) PO SCH ×3 (10:06→14:14)
[2023-02-17] MEDS: BUDESONIDE/FORMETEROL FUMARATE 80/4.5 mcg INHALER IH SCH (10:06)
[2023-02-17] MEDS: PRENATAL VITAMINS W/ FOLIC ACID TABLET (FP) PO SCH (10:06)
[2023-02-17] MEDS: NICOTINE 14 MG/24 HOURS TOPICAL PATCH TD SCH (10:08)
[2023-02-17 12:53] VITALS: BP 116/60; PULSE 73; TEMP 98.2
[2023-02-18] MEDS ORDERED: LORazepam 0.5 MG TABLET PO PRN
[2023-02-18] MEDS ORDERED: LORazepam 0.5 MG TABLET PO SCH (05:00)
[2023-02-19] MEDS ORDERED: LORazepam 0.5 MG TABLET PO ONE (05:00)
== END 2023-02-17 02:14 | disposition left against medical advice (07) | DRG 770 ==
LOC: YASAS 06:19 → Y3N 09:10
PROVIDERS: ADMIT Allergy & Immunology; ATTEND Surgery
PROC: HZ2ZZZZ Detoxification Services for Substance Abuse Treatment (ICD-10-PCS; principal; 2023-02-15)
DX: F10.230 Alcohol dependence with withdrawal, uncomplicated (principal); F14.20 Cocaine dependence, uncomplicated; F11.10 Opioid abuse, uncomplicated; F13.20 Sedative, hypnotic or anxiolytic dependence, uncomplicated; F17.210 Nicotine dependence, cigarettes, uncomplicated; F25.9 Schizoaffective disorder, unspecified; Z21 Asymptomatic human immunodeficiency virus [HIV] infection status; M25.512 Pain in left shoulder; M54.50 Low back pain, unspecified; G89.29 Other chronic pain; R79.89 Other specified abnormal findings of blood chemistry; Z86.19 Personal history of other infectious and parasitic diseases
CPT/HCPCS: 36415; 80053; 82140; 85027; 86593; 86780; 87811; C9803-CS; U0003; U0005

== ENCOUNTER 2023-03-07 14:08 | Inpatient (IN) | payer OTHER ==
[2023-03-07 14:27] VITALS: BMI 23.0
[2023-03-07] MEDS ORDERED: POLYETHYLENE GLYCOL (HEALTHYLAX) 3350 17 GM PACKET PO PRN (16:27)
[2023-03-07] MEDS ORDERED: LOPERAMIDE HCL 2 MG CAPSULE PO PRN (16:27)
[2023-03-07] MEDS ORDERED: NALOXONE HCL (KLOXXADO) 8 MG SPRAY NS PRN (16:27)
[2023-03-07] MEDS ORDERED: NALOXONE HCL 0.4 MG/ML VIAL IM PRN (16:27)
[2023-03-07] MEDS ORDERED: IBUPROFEN 600 MG TABLET (FP) PO PRN (16:27)
[2023-03-07] MEDS ORDERED: guaiFENesin 600 MG TABLET.ER (FP) PO PRN (16:27)
[2023-03-07] MEDS ORDERED: MAG HYDROX/AL HYDROX/SIMETH 30 ML UNIT-DOSE CUP PO PRN (16:27)
[2023-03-07] MEDS ORDERED: BENZONATATE 200 MG CAPSULE PO PRN (16:27)
[2023-03-07] MEDS ORDERED: NICOTINE 10 MG CARTRIDGE (INHALER) IH PRN (16:27)
[2023-03-07] MEDS ORDERED: BENZOCAINE/MENTHOL (CHLORASEPTIC ) LOZENGE MM PRN (16:27)
[2023-03-07] MEDS ORDERED: ACETAMINOPHEN 325 MG TABLET (FP) PO PRN (16:27)
[2023-03-07] MEDS ORDERED: IBUPROFEN 400 MG TABLET (FP) PO PRN (16:27)
[2023-03-07] MEDS ORDERED: ONDANSETRON *ODT* 4 MG TABLET SL PRN (16:27)
[2023-03-07] MEDS ORDERED: DICYCLOMINE HCL 10 MG CAPSULE PO PRN (16:27)
[2023-03-07] MEDS ORDERED: BISMUTH SUBSALICYLATE 524 MG/30 ML PO PRN (16:27)
[2023-03-07] MEDS ORDERED: MAGNESIUM HYDROX 2400MG/30ML ORAL SUSPENSION 30 ML CUP PO PRN (16:27)
[2023-03-07] MEDS: PRENATAL VITAMINS W/ FOLIC ACID TABLET (FP) PO SCH (18:18)
[2023-03-07] MEDS: hydrOXYzine PAMOATE 25 MG CAPSULE (FP) PO PRN ×2 (18:18→22:43)
[2023-03-07] MEDS: NICOTINE 14 MG/24 HOURS TOPICAL PATCH TD SCH (18:24)
[2023-03-07] MEDS: THIAMINE HCL 100 MG TABLET (FP) PO SCH (22:43)
[2023-03-07] MEDS: MELATONIN 5 MG TABLETS PO SCH (22:43)
[2023-03-07] MEDS: METHOCARBAMOL 500 MG TABLET PO PRN (22:43)
[2023-03-08] MEDS: METHOCARBAMOL 500 MG TABLET PO PRN (05:21)
[2023-03-08] MEDS: hydrOXYzine PAMOATE 25 MG CAPSULE (FP) PO PRN (05:21)
[2023-03-08] MEDS ORDERED: LORazepam 1 MG TABLET PO PRN (09:01)
[2023-03-08] MEDS ORDERED: ALBUTEROL SO4 HFA INHALER IH PRN (09:02)
[2023-03-08] MEDS: BUDESONIDE/FORMETEROL FUMARATE 80/4.5 mcg INHALER IH SCH ×2 (10:26→22:32)
[2023-03-08] MEDS: NICOTINE 14 MG/24 HOURS TOPICAL PATCH TD SCH (10:26)
[2023-03-08] MEDS: LORazepam 2 MG TABLET PO SCH ×3 (10:27→22:29)
[2023-03-08] MEDS: PRENATAL VITAMINS W/ FOLIC ACID TABLET (FP) PO SCH (10:27)
[2023-03-08 11:39] LABS: HEMATOCRIT 35.9 % (35.4-49); HEMOGLOBIN 11.6 GM/dL (11.7-16.9); MCH 24.8 pg (25.7-33.7); MCHC 32.4 g/dl (32.0-35.9); MEAN CELL VOLUME 76.3 fl (80-96); MEAN PLT VOLUME 7.7 fl (7.5-11.1); PLATELET COUNT 294 10^3/uL (134-434); RDW 15.3 % (11.9-15.9); WHITE BLOOD COUNT 5.7 K/mm3 (4.0-10.0)
[2023-03-08 11:53] LABS: POTASSIUM 4.4 mmol/L (3.5-5.1)
[2023-03-08 11:58] LABS: ALBUMIN 2.8 g/dl (3.4-5.0); CALCIUM 8.5 mg/dL (8.5-10.1)
[2023-03-08 12:03] LABS: BILIRUBIN,TOTAL 0.6 mg/dL (0.2-1)
[2023-03-08 12:05] LABS: CREATININE 0.9 mg/dL (0.55-1.3)
[2023-03-08] MEDS: THIAMINE HCL 100 MG TABLET (FP) PO SCH (22:31)
[2023-03-08] MEDS: MELATONIN 5 MG TABLETS PO SCH (22:58)
[2023-03-09] MEDS: LORazepam 2 MG TABLET PO SCH ×4 (06:43→22:20)
[2023-03-09] MEDS: NICOTINE 14 MG/24 HOURS TOPICAL PATCH TD SCH (10:40)
[2023-03-09] MEDS: METHOCARBAMOL 500 MG TABLET PO PRN (10:41)
[2023-03-09] MEDS: PRENATAL VITAMINS W/ FOLIC ACID TABLET (FP) PO SCH (10:41)
[2023-03-09] MEDS: hydrOXYzine PAMOATE 25 MG CAPSULE (FP) PO PRN (10:41)
[2023-03-09] MEDS: BUDESONIDE/FORMETEROL FUMARATE 80/4.5 mcg INHALER IH SCH ×2 (10:42→22:22)
[2023-03-09] MEDS: THIAMINE HCL 100 MG TABLET (FP) PO SCH (22:20)
[2023-03-09] MEDS: MELATONIN 5 MG TABLETS PO SCH (22:21)
[2023-03-10] MEDS: LORazepam 1 MG TABLET PO SCH ×2 (05:14→10:21)
[2023-03-10 08:59] VITALS: PULSE 89
[2023-03-10] MEDS: NICOTINE 14 MG/24 HOURS TOPICAL PATCH TD SCH (10:20)
[2023-03-10] MEDS: PRENATAL VITAMINS W/ FOLIC ACID TABLET (FP) PO SCH (10:21)
[2023-03-10] MEDS: hydrOXYzine PAMOATE 25 MG CAPSULE (FP) PO PRN (10:21)
[2023-03-10] MEDS: METHOCARBAMOL 500 MG TABLET PO PRN (10:21)
[2023-03-10] MEDS: BUDESONIDE/FORMETEROL FUMARATE 80/4.5 mcg INHALER IH SCH (10:21)
[2023-03-10 13:06] VITALS: BP 132/98; RESP 19; TEMP 97.5
[2023-03-11] MEDS ORDERED: LORazepam 0.5 MG TABLET PO PRN
[2023-03-11] MEDS ORDERED: LORazepam 0.5 MG TABLET PO SCH (05:00)
[2023-03-12] MEDS ORDERED: LORazepam 0.5 MG TABLET PO ONE (05:00)
== END 2023-03-10 13:00 | disposition left against medical advice (07) | DRG 770 ==
LOC: YASAS 14:08 → Y6N 17:18
PROVIDERS: ADMIT Allergy & Immunology; ATTEND Surgery
PROC: HZ2ZZZZ Detoxification Services for Substance Abuse Treatment (ICD-10-PCS; principal; 2023-03-07)
DX: F13.230 Sedative, hypnotic or anxiolytic dependence with withdrawal, uncomplicated (principal); F14.20 Cocaine dependence, uncomplicated; F10.20 Alcohol dependence, uncomplicated; F17.210 Nicotine dependence, cigarettes, uncomplicated; F31.9 Bipolar disorder, unspecified; F25.9 Schizoaffective disorder, unspecified; Z21 Asymptomatic human immunodeficiency virus [HIV] infection status; J44.9 Chronic obstructive pulmonary disease, unspecified; M25.512 Pain in left shoulder; M54.50 Low back pain, unspecified; G89.29 Other chronic pain; Z86.19 Personal history of other infectious and parasitic diseases
CPT/HCPCS: 36415; 80053; 85027; 86593; 86780; 87635; C9803-CS; U0003; U0005

== ENCOUNTER 2023-03-30 08:42 | Inpatient (IN) | payer OTHER ==
[2023-03-30 09:09] VITALS: BMI 23.0
[2023-03-30] MEDS ORDERED: AMMONIUM LACTATE 12% LOTION 225 GM BOTTLE TP PRN (10:19)
[2023-03-30] MEDS ORDERED: LOPERAMIDE HCL 2 MG CAPSULE PO PRN (10:19)
[2023-03-30] MEDS ORDERED: MAG HYDROX/AL HYDROX/SIMETH 30 ML UNIT-DOSE CUP PO PRN (10:19)
[2023-03-30] MEDS ORDERED: METHOCARBAMOL 500 MG TABLET PO PRN (10:19)
[2023-03-30] MEDS ORDERED: POLYETHYLENE GLYCOL (HEALTHYLAX) 3350 17 GM PACKET PO PRN (10:19)
[2023-03-30] MEDS ORDERED: COLLOIDAL OATMEAL 1 BAR EACH TP PRN (10:19)
[2023-03-30] MEDS ORDERED: NICOTINE 10 MG CARTRIDGE (INHALER) IH PRN (10:19)
[2023-03-30] MEDS ORDERED: NALOXONE HCL 0.4 MG/ML VIAL IM PRN (10:19)
[2023-03-30] MEDS ORDERED: MAGNESIUM HYDROX 2400MG/30ML ORAL SUSPENSION 30 ML CUP PO PRN (10:19)
[2023-03-30] MEDS ORDERED: IBUPROFEN 600 MG TABLET (FP) PO PRN (10:19)
[2023-03-30] MEDS ORDERED: guaiFENesin 600 MG TABLET.ER (FP) PO PRN (10:19)
[2023-03-30] MEDS ORDERED: ACETAMINOPHEN 325 MG TABLET (FP) PO PRN (10:19)
[2023-03-30] MEDS ORDERED: BENZONATATE 200 MG CAPSULE PO PRN (10:19)
[2023-03-30] MEDS ORDERED: ONDANSETRON *ODT* 4 MG TABLET SL PRN (10:19)
[2023-03-30] MEDS ORDERED: IBUPROFEN 400 MG TABLET (FP) PO PRN (10:19)
[2023-03-30] MEDS ORDERED: NALOXONE HCL (KLOXXADO) 8 MG SPRAY NS PRN (10:19)
[2023-03-30] MEDS ORDERED: BENZOCAINE/MENTHOL (CHLORASEPTIC ) LOZENGE MM PRN (10:19)
[2023-03-30] MEDS ORDERED: BISMUTH SUBSALICYLATE 262 MG/15 ML BTL PO PRN (10:19)
[2023-03-30] MEDS ORDERED: DICYCLOMINE HCL 10 MG CAPSULE PO PRN (10:19)
[2023-03-30] MEDS ORDERED: ALBUTEROL SO4 HFA INHALER IH PRN (10:22)
[2023-03-30 14:55] LABS: HEMOGLOBIN 11.8 GM/dL (11.7-16.9); MCH 24.1 pg (25.7-33.7); MEAN CELL VOLUME 75.3 fl (80-96); MEAN PLT VOLUME 7.6 fl (7.5-11.1); PLATELET COUNT 287 10^3/uL (134-434); RBC 4.91 M/mm3 (4.00-5.60); RDW 15.9 % (11.9-15.9); WHITE BLOOD COUNT 6.8 K/mm3 (4.0-10.0)
[2023-03-30 15:01] LABS: POTASSIUM 4.2 mmol/L (3.5-5.1)
[2023-03-30 15:08] LABS: CALCIUM 8.9 mg/dL (8.5-10.1)
[2023-03-30 15:09] LABS: ALBUMIN 3.3 g/dl (3.4-5.0); BLOOD UREA NITROGEN 17.4 mg/dL (7-18)
[2023-03-30] MEDS: BUDESONIDE/FORMETEROL FUMARATE 80/4.5 mcg INHALER IH SCH ×2 (15:12→22:27)
[2023-03-30 15:13] LABS: BILIRUBIN,TOTAL 0.2 mg/dL (0.2-1)
[2023-03-30] MEDS: ELVITEG/COB/EMTRI/TENOF (GENVOYA) TABLET PO SCH (15:24)
[2023-03-30] MEDS ORDERED: chlordiazePOXIDE HCL 25 MG CAPSULE PO PRN (17:56)
[2023-03-30] MEDS: hydrOXYzine PAMOATE 25 MG CAPSULE (FP) PO PRN (18:14)
[2023-03-30] MEDS: chlordiazePOXIDE HCL 25 MG CAPSULE PO SCH (22:24)
[2023-03-30] MEDS: QUEtiapine FUMARATE 50 MG TABLET PO SCH (22:24)
[2023-03-30] MEDS: THIAMINE HCL 100 MG TABLET (FP) PO SCH (22:24)
[2023-03-30] MEDS: MELATONIN 5 MG TABLETS PO SCH (22:25)
[2023-03-31] MEDS: chlordiazePOXIDE HCL 25 MG CAPSULE PO SCH ×4 (05:41→22:33)
[2023-03-31] MEDS: ELVITEG/COB/EMTRI/TENOF (GENVOYA) TABLET PO SCH (08:00)
[2023-03-31] MEDS: PRENATAL VITAMINS W/ FOLIC ACID TABLET (FP) PO SCH (09:55)
[2023-03-31] MEDS: BUDESONIDE/FORMETEROL FUMARATE 80/4.5 mcg INHALER IH SCH ×3 (09:56→22:44)
[2023-03-31] MEDS: QUEtiapine FUMARATE 50 MG TABLET PO SCH (22:32)
[2023-03-31] MEDS: MELATONIN 5 MG TABLETS PO SCH (22:32)
[2023-03-31] MEDS: THIAMINE HCL 100 MG TABLET (FP) PO SCH (22:33)
[2023-04-01] MEDS: chlordiazePOXIDE HCL 25 MG CAPSULE PO SCH ×4 (05:32→22:05)
[2023-04-01] MEDS: ELVITEG/COB/EMTRI/TENOF (GENVOYA) TABLET PO SCH (07:03)
[2023-04-01] MEDS: PRENATAL VITAMINS W/ FOLIC ACID TABLET (FP) PO SCH (10:14)
[2023-04-01] MEDS: BUDESONIDE/FORMETEROL FUMARATE 80/4.5 mcg INHALER IH SCH ×2 (10:15→22:40)
[2023-04-01] MEDS: LACTULOSE 20 GM/30 ML UDC (FOR ORAL USE ONLY) PO SCH ×2 (14:57→22:04)
[2023-04-01] MEDS: THIAMINE HCL 100 MG TABLET (FP) PO SCH (22:04)
[2023-04-01] MEDS: MELATONIN 5 MG TABLETS PO SCH (22:04)
[2023-04-01] MEDS: QUEtiapine FUMARATE 50 MG TABLET PO SCH (22:04)
[2023-04-02] MEDS ORDERED: chlordiazePOXIDE HCL 10 MG CAPSULE PO PRN
[2023-04-02] MEDS: chlordiazePOXIDE HCL 10 MG CAPSULE PO SCH ×3 (05:50→17:41)
[2023-04-02] MEDS: LACTULOSE 20 GM/30 ML UDC (FOR ORAL USE ONLY) PO SCH ×2 (05:51→14:07)
[2023-04-02] MEDS: ELVITEG/COB/EMTRI/TENOF (GENVOYA) TABLET PO SCH (07:10)
[2023-04-02] MEDS: BUDESONIDE/FORMETEROL FUMARATE 80/4.5 mcg INHALER IH SCH (10:32)
[2023-04-02] MEDS: PRENATAL VITAMINS W/ FOLIC ACID TABLET (FP) PO SCH (10:34)
[2023-04-02] MEDS: hydrOXYzine PAMOATE 25 MG CAPSULE (FP) PO PRN (11:03)
[2023-04-02 16:56] VITALS: RESP 18
[2023-04-02 20:55] VITALS: BP 135/85; PULSE 95; TEMP 97.7
[2023-04-03] MEDS ORDERED: chlordiazePOXIDE HCL 10 MG CAPSULE PO SCH (05:00)
[2023-04-04] MEDS ORDERED: chlordiazePOXIDE HCL 10 MG CAPSULE PO ONE (05:00)
== END 2023-04-02 20:15 | disposition left against medical advice (07) | DRG 770 ==
LOC: YASAS 08:42 → Y3N 10:30
PROVIDERS: ADMIT Allergy & Immunology; ATTEND Surgery
PROC: HZ2ZZZZ Detoxification Services for Substance Abuse Treatment (ICD-10-PCS; principal; 2023-03-30)
DX: F10.230 Alcohol dependence with withdrawal, uncomplicated (principal); F13.20 Sedative, hypnotic or anxiolytic dependence, uncomplicated; F14.20 Cocaine dependence, uncomplicated; F12.20 Cannabis dependence, uncomplicated; F31.9 Bipolar disorder, unspecified; U07.1 COVID-19; E72.20 Disorder of urea cycle metabolism, unspecified; Z21 Asymptomatic human immunodeficiency virus [HIV] infection status; E11.9 Type 2 diabetes mellitus without complications; J45.909 Unspecified asthma, uncomplicated; Z87.891 Personal history of nicotine dependence
CPT/HCPCS: 36415; 80053; 82140; 83036; 85027; 86593; 86780; 87635; 87811

== ENCOUNTER 2023-04-20 10:17 | Inpatient (IN) | payer OTHER ==
[2023-04-20 11:00] VITALS: BMI 24.3
[2023-04-20] MEDS ORDERED: IBUPROFEN 400 MG TABLET (FP) PO PRN (12:29)
[2023-04-20] MEDS ORDERED: NALOXONE HCL (KLOXXADO) 8 MG SPRAY NS PRN (12:29)
[2023-04-20] MEDS ORDERED: guaiFENesin 600 MG TABLET.ER (FP) PO PRN (12:29)
[2023-04-20] MEDS ORDERED: ACETAMINOPHEN 325 MG TABLET (FP) PO PRN (12:29)
[2023-04-20] MEDS ORDERED: MAG HYDROX/AL HYDROX/SIMETH 30 ML UNIT-DOSE CUP PO PRN (12:29)
[2023-04-20] MEDS ORDERED: MAGNESIUM HYDROX 2400MG/30ML ORAL SUSPENSION 30 ML CUP PO PRN (12:29)
[2023-04-20] MEDS ORDERED: POLYETHYLENE GLYCOL (HEALTHYLAX) 3350 17 GM PACKET PO PRN (12:29)
[2023-04-20] MEDS ORDERED: LOPERAMIDE HCL 2 MG CAPSULE PO PRN (12:29)
[2023-04-20] MEDS ORDERED: NALOXONE HCL 0.4 MG/ML VIAL IM PRN (12:29)
[2023-04-20] MEDS ORDERED: hydrOXYzine PAMOATE 25 MG CAPSULE (FP) PO PRN (12:29)
[2023-04-20] MEDS ORDERED: DICYCLOMINE HCL 10 MG CAPSULE PO PRN (12:29)
[2023-04-20] MEDS ORDERED: ONDANSETRON *ODT* 4 MG TABLET SL PRN (12:29)
[2023-04-20] MEDS ORDERED: IBUPROFEN 600 MG TABLET (FP) PO PRN (12:29)
[2023-04-20] MEDS ORDERED: BENZOCAINE/MENTHOL (CHLORASEPTIC ) LOZENGE MM PRN (12:29)
[2023-04-20] MEDS ORDERED: BISMUTH SUBSALICYLATE 262 MG/15 ML BTL PO PRN (12:29)
[2023-04-20] MEDS ORDERED: BENZONATATE 200 MG CAPSULE PO PRN (12:29)
[2023-04-20] MEDS ORDERED: PRENATAL VITAMINS W/ FOLIC ACID TABLET (FP) PO ONE (13:45)
[2023-04-20] MEDS: PRENATAL VITAMINS W/ FOLIC ACID TABLET (FP) PO SCH (13:47)
[2023-04-20] MEDS: ALBUTEROL SO4 HFA INHALER IH PRN (14:59)
[2023-04-20 17:03] LABS: POTASSIUM 4.3 mmol/L (3.5-5.1)
[2023-04-20 17:07] LABS: HEMATOCRIT 36.7 % (35.4-49); HEMOGLOBIN 11.4 GM/dL (11.7-16.9); MCH 24.2 pg (25.7-33.7); MCHC 31.2 g/dl (32.0-35.9); MEAN CELL VOLUME 77.7 fl (80-96); MEAN PLT VOLUME 8.2 fl (7.5-11.1); PLATELET COUNT 234 10^3/uL (134-434); RBC 4.72 M/mm3 (4.00-5.60); RDW 16.3 % (11.9-15.9); WHITE BLOOD COUNT 7.2 K/mm3 (4.0-10.0)
[2023-04-20 17:10] LABS: BLOOD UREA NITROGEN 25.1 mg/dL (7-18); CALCIUM 9.1 mg/dL (8.5-10.1)
[2023-04-20 17:11] LABS: ALBUMIN 3.6 g/dl (3.4-5.0)
[2023-04-20 17:12] LABS: BILIRUBIN,TOTAL 0.2 mg/dL (0.2-1); TOT PROT 7.5 g/dl (6.4-8.2)
[2023-04-20 17:13] LABS: CREATININE 1.2 mg/dL (0.55-1.3)
[2023-04-20] MEDS: diazePAM 5 MG TABLET PO SCH ×2 (17:21→22:33)
[2023-04-20] MEDS ORDERED: traZODone HCL 50 MG TABLET (FP) PO SCH (22:00)
[2023-04-20] MEDS: BUDESONIDE/FORMETEROL FUMARATE 80/4.5 mcg INHALER IH SCH (22:33)
[2023-04-20] MEDS: MELATONIN 5 MG TABLETS PO SCH (22:33)
[2023-04-20] MEDS: traZODone HCL 50 MG TABLET (FP) PO SCH (22:33)
[2023-04-20] MEDS: THIAMINE HCL 100 MG TABLET (FP) PO SCH (22:33)
[2023-04-20] MEDS: QUEtiapine FUMARATE 100 MG TABLET (FP) PO SCH (22:33)
[2023-04-21] MEDS: diazePAM 5 MG TABLET PO SCH ×4 (05:32→22:11)
[2023-04-21] MEDS: PRENATAL VITAMINS W/ FOLIC ACID TABLET (FP) PO SCH (10:20)
[2023-04-21] MEDS: BUDESONIDE/FORMETEROL FUMARATE 80/4.5 mcg INHALER IH SCH ×2 (10:20→22:13)
[2023-04-21] MEDS: ALBUTEROL SO4 HFA INHALER IH PRN (14:34)
[2023-04-21] MEDS: ELVITEG/COB/EMTRI/TENOF (GENVOYA) TABLET PO SCH (14:37)
[2023-04-21] MEDS: THIAMINE HCL 100 MG TABLET (FP) PO SCH (22:11)
[2023-04-21] MEDS: QUEtiapine FUMARATE 100 MG TABLET (FP) PO SCH (22:13)
[2023-04-21] MEDS: traZODone HCL 50 MG TABLET (FP) PO SCH (22:13)
[2023-04-21] MEDS: MELATONIN 5 MG TABLETS PO SCH (22:14)
[2023-04-22] MEDS: diazePAM 5 MG TABLET PO SCH ×3 (05:30→22:02)
[2023-04-22] MEDS: ELVITEG/COB/EMTRI/TENOF (GENVOYA) TABLET PO SCH (07:05)
[2023-04-22] MEDS: PRENATAL VITAMINS W/ FOLIC ACID TABLET (FP) PO SCH (10:20)
[2023-04-22] MEDS: METHOCARBAMOL 500 MG TABLET PO PRN (10:20)
[2023-04-22] MEDS: diazePAM 5 MG TABLET PO PRN (10:20)
[2023-04-22] MEDS: BUDESONIDE/FORMETEROL FUMARATE 80/4.5 mcg INHALER IH SCH ×2 (10:21→22:03)
[2023-04-22] MEDS: QUEtiapine FUMARATE 100 MG TABLET (FP) PO SCH (22:01)
[2023-04-22] MEDS: THIAMINE HCL 100 MG TABLET (FP) PO SCH (22:01)
[2023-04-22] MEDS: MELATONIN 5 MG TABLETS PO SCH (22:04)
[2023-04-22] MEDS: traZODone HCL 50 MG TABLET (FP) PO SCH (22:04)
[2023-04-23] MEDS: diazePAM 5 MG TABLET PO SCH ×2 (05:33→17:24)
[2023-04-23] MEDS: ELVITEG/COB/EMTRI/TENOF (GENVOYA) TABLET PO SCH (07:16)
[2023-04-23] MEDS: BUDESONIDE/FORMETEROL FUMARATE 80/4.5 mcg INHALER IH SCH ×2 (09:48→22:18)
[2023-04-23] MEDS: diazePAM 5 MG TABLET PO PRN (09:49)
[2023-04-23] MEDS: PRENATAL VITAMINS W/ FOLIC ACID TABLET (FP) PO SCH (09:49)
[2023-04-23] MEDS: METHOCARBAMOL 500 MG TABLET PO PRN (19:56)
[2023-04-23] MEDS: THIAMINE HCL 100 MG TABLET (FP) PO SCH (22:16)
[2023-04-23] MEDS: QUEtiapine FUMARATE 100 MG TABLET (FP) PO SCH (22:16)
[2023-04-23] MEDS: MELATONIN 5 MG TABLETS PO SCH (23:09)
[2023-04-23] MEDS: traZODone HCL 50 MG TABLET (FP) PO SCH (23:09)
[2023-04-24] MEDS ORDERED: diazePAM 5 MG TABLET PO ONE (06:00)
[2023-04-24 06:19] VITALS: BP 120/68; PULSE 81; RESP 18; TEMP 98.1
== END 2023-04-24 09:13 | disposition home or self-care (01) | DRG 774 ==
LOC: YASAS 10:17 → Y6N 13:21
PROVIDERS: ADMIT Allergy & Immunology; ATTEND Allergy & Immunology
PROC: HZ2ZZZZ Detoxification Services for Substance Abuse Treatment (ICD-10-PCS; principal; 2023-04-20)
DX: F10.230 Alcohol dependence with withdrawal, uncomplicated (principal); F13.230 Sedative, hypnotic or anxiolytic dependence with withdrawal, uncomplicated; F14.20 Cocaine dependence, uncomplicated; F16.10 Hallucinogen abuse, uncomplicated; F17.210 Nicotine dependence, cigarettes, uncomplicated; F25.1 Schizoaffective disorder, depressive type; F31.9 Bipolar disorder, unspecified; Z21 Asymptomatic human immunodeficiency virus [HIV] infection status; G47.00 Insomnia, unspecified; Z86.19 Personal history of other infectious and parasitic diseases
CPT/HCPCS: 36415; 80053; 84520; 85027; 86593; 86780; 87635; 87811